=== PATIENT | male | born 1965 | race Caucasian/White ===

== ENCOUNTER 2020-07-29 16:07 | Emergency (ER) | payer MEDICAID ==
[~2020-07-29] VITALS: Ht 190.5 cm; Wt 90.0 kg
[2020-07-29 16:11] VITALS: BP 179/118
[2020-07-29] MEDS ORDERED: normal saline 1000ML IV soln IVB ONE (16:20)
[2020-07-29 16:43] LABS: BASOPHILS % (AUTO) 0.7 % (0-1); EOSINOPHILS # (AUTO) 0.1 X10'3 (0-0.9); EOSINOPHILS % (AUTO) 2.1 % (0-6); HEMATOCRIT 43.5 % (42.0-52.0); LYMPHOCYTES # (AUTO) 1.3 X10'3 (1.1-4.8); LYMPHOCYTES % (AUTO) 24.9 % (21-51); MEAN CORPUSCULAR HEMOGLOBIN 30.3 PG (27.0-31.0); MEAN CORPUSCULAR HGB CONC 34.5 g/dL (33.0-36.5); MEAN CORPUSCULAR VOLUME 87.8 FL (78-98); MEAN PLATELET VOLUME 8.7 FL (7.4-10.4); MONOCYTES # (AUTO) 0.6 X10'3 (0-0.9); MONOCYTES % (AUTO) 11.6 % (2-12); NEUTROPHILS # (AUTO) 3.3 X10'3 (1.8-7.7); NEUTROPHILS % (AUTO) 60.7 % (42-75); PLATELET COUNT 163 X10'3 (140-440); RED BLOOD COUNT 4.96 X10'6 (4.70-6.10); RED CELL DISTRIBUTION WIDTH 13.2 % (11.5-14.5); WHITE BLOOD COUNT 5.4 X10'3 (4.5-11.0)
[2020-07-29 16:57] LABS: ALANINE AMINOTRANSFERASE 39 U/L (12-78); ALBUMIN 3.8 G/DL (3.4-5.0); ALKALINE PHOSPHATASE 129 IU/L (46-116); ANION GAP 7 (8-16); ASPARTATE AMINO TRANSFERASE 23 U/L (10-37); BILIRUBIN,TOTAL 0.4 MG/DL (0.1-1.0); BLOOD UREA NITROGEN 27 MG/DL (7-18); BUN/CREATININE RATIO 18.6 (5.4-32.0); CALCIUM 9.1 MG/DL (8.5-10.1); CHLORIDE 102 MMOL/L (99-107); CREATININE 1.45 MG/DL (0.60-1.10); GLUCOSE 309 MG/DL (70-104); POTASSIUM 4.1 MMOL/L (3.5-5.1); SODIUM 137 MMOL/L (135-145); TOTAL CARBON DIOXIDE 27.6 MMOL/L (24-32); TOTAL PROTEIN 7.6 G/DL (6.4-8.2); eGFR 51 ML/MIN
== END 2020-07-29 17:23 | disposition home or self-care (01) ==
LOC: ER 16:07
DX: E11.65 Type 2 diabetes mellitus with hyperglycemia (principal); I10 Essential (primary) hypertension
CPT/HCPCS: 36415; 80053; 82948; 85025; 99283

== ENCOUNTER 2021-03-15 11:59 | Inpatient (IN) | payer MEDICAID ==
[~2021-03-15] VITALS: Ht 190.5 cm; Wt 90.9 kg
--- NOTE | 2021-03-15 11:30 | NUR ---
patient refuses Lantus.request to speak to MD in the morning before he takes it. Per ED nurse patient refused it in the ED. Addendum: 03/16/21 at 0544 by Pily Oliva RN documentation for 2330 not for 1130. wrong time.
[2021-03-15] MEDS ORDERED: aspirin 81mg tab.chew PO ONE (12:15)
[2021-03-15] MEDS ORDERED: iohexol 350MG/ML 100ml bottle IV ONE (12:22)
[2021-03-15 12:28] LABS: BASOPHILS % (AUTO) 0.3 % (0-1); EOSINOPHILS # (AUTO) 0.1 X10'3 (0-0.9); EOSINOPHILS % (AUTO) 1.8 % (0-6); HEMATOCRIT 42.1 % (42.0-52.0); HEMOGLOBIN 14.6 g/dl (14.0-17.9); LYMPHOCYTES # (AUTO) 1.1 X10'3 (1.1-4.8); LYMPHOCYTES % (AUTO) 21.2 % (21-51); MEAN CORPUSCULAR HEMOGLOBIN 30.7 PG (27.0-31.0); MEAN CORPUSCULAR HGB CONC 34.6 g/dL (33.0-36.5); MEAN CORPUSCULAR VOLUME 88.6 FL (78-98); MEAN PLATELET VOLUME 8.8 FL (7.4-10.4); MONOCYTES # (AUTO) 0.4 X10'3 (0-0.9); MONOCYTES % (AUTO) 8.3 % (2-12); NEUTROPHILS # (AUTO) 3.7 X10'3 (1.8-7.7); NEUTROPHILS % (AUTO) 68.4 % (42-75); PLATELET COUNT 154 X10'3 (140-440); RED BLOOD COUNT 4.75 X10'6 (4.70-6.10); RED CELL DISTRIBUTION WIDTH 13.3 % (11.5-14.5); WHITE BLOOD COUNT 5.4 X10'3 (4.5-11.0)
--- NOTE | 2021-03-15 12:31 | NUR ---
to ct scan.
[2021-03-15 12:38] LABS: ALANINE AMINOTRANSFERASE 32 U/L (12-78); ALBUMIN 3.6 G/DL (3.4-5.0); ALKALINE PHOSPHATASE 144 IU/L (46-116); ANION GAP 7 (8-16); ASPARTATE AMINO TRANSFERASE 17 U/L (10-37); BILIRUBIN,TOTAL 0.5 MG/DL (0.1-1.0); BLOOD UREA NITROGEN 21 MG/DL (7-18); BUN/CREATININE RATIO 14.6 (5.4-32.0); CHLORIDE 104 MMOL/L (99-107); CREATININE 1.44 MG/DL (0.60-1.10); GLUCOSE 326 MG/DL (70-104); POTASSIUM 4.2 MMOL/L (3.5-5.1); SODIUM 138 MMOL/L (135-145); TOTAL CARBON DIOXIDE 27.4 MMOL/L (24-32); TOTAL PROTEIN 7.2 G/DL (6.4-8.2); eGFR 51 ML/MIN
--- NOTE | 2021-03-15 12:40 | NUR ---
ATTEMPT EKG, PT TO CT AT THIS TIME.
[2021-03-15 12:44] LABS: CALCIUM 8.8 MG/DL (8.5-10.1)
--- NOTE | 2021-03-15 13:32 | NUR ---
STROKE NURSE AT BEDSIDE.
--- NOTE | 2021-03-15 13:37 | NUR ---
Ean called in for a stroke alert that is level 2 and did my evaluation,we are waiting on the tele neuro consult.
--- NOTE | 2021-03-15 14:44 | NUR ---
TELE NEURO CONSULT HAS BEEN DONE
--- NOTE | 2021-03-15 15:00 | NUR ---
PT CAME BACK FROM MRI.
[2021-03-15] MEDS ORDERED: NO HOME MEDS (15:34)
[2021-03-15] MEDS ORDERED: acetaminophen 325mg tablet PO PRN (15:40)
[2021-03-15] MEDS ORDERED: ondansetron/PF 4mg/2ml inj IV PRN (15:40)
[2021-03-15] MEDS ORDERED: magnesium hydroxide 30ml (MOM) UD suspension PO PRN (15:40)
[2021-03-15] MEDS ORDERED: potassium Cl 40MEQ/1/2NS 520ml 520 ML IV PRN ×2 (15:40)
[2021-03-15] MEDS ORDERED: potassium Cl 20 mEq SR tablet PO PRN ×2 (15:40)
[2021-03-15] MEDS ORDERED: mag hydrox/Alum hydrox/simeth 30ml oral suspension PO PRN (15:40)
[2021-03-15] MEDS ORDERED: PERFLUTREN PROTEIN-A MICROSPHR (Optison) 0.22 MG/ML 3ML VIAL IV ONE (15:40)
[2021-03-15] MEDS ORDERED: dextrose 50%-water 50ml dispensing syringe IV PRN ×2 (15:45)
[2021-03-15] MEDS ORDERED: MESSAGE TO PHARMACY PO ONE (15:45)
[2021-03-15] MEDS ORDERED: glucagon, human recombinant 1mg kit SUBCUT PRN (15:45)
[2021-03-15] MEDS ORDERED: dextrose ORAL solution 15 GM/59 ML bottle PO PRN ×2 (15:45)
[2021-03-15 16:17] LABS: HEMOGLOBIN A1C 10.7 % (4.5-6.2)
[2021-03-15] MEDS: docusate sod 100mg capsule PO SCH (20:00)
[2021-03-15] MEDS: heparin, porcine 5000 units/ml vial SQ SCH (21:55)
[2021-03-15] MEDS: K and/or MAG REPLACEMENT MC SCH (22:02)
--- NOTE | 2021-03-15 22:11 | NUR ---
Patient assessed for stroke symptoms. Patient displayed mild weakness on right side with squeezing this marketing underwriter's hand, other limbs are WNL per patient. When asked to smile patient displayed left side smiling but right side unable to smile. Pupil responses are WNL.
--- NOTE | 2021-03-15 22:54 | NUR ---
Patient in room ED 9 GOING TO [id number]. I have received report from SARA MOREL and had the opportunity to ask questions and assume patient care.
[2021-03-16] VITALS (10 sets, daily range): BP systolic 126–168; BP diastolic 83–126
--- NOTE | 2021-03-16 00:05 | NUR ---
PATIENT ADMITTED TO [facility]. VS ASSESSED AND DOCUMENTED.PATIENT TELE MONITOR ON. PATIENT'S BP RUNS HIGH. HOSPITALIST RAYMOND Gregory MD, PAGED TO REPORT PATIENT HYPERTENSIVE STATE. PER HOSPITALIST NO ACTION IS NEEDED. NO NEW ORDER WAS GIVEN. STATES "IF ANYTHING FOLLOW PROTOCOL". PATIENT IS CURRENTLY LAYING IN BED. DENIES PAIN OR DISTRESS. CALL LIGHT IN REACH. ENCOURAGE PATIENT TO CALL FOR HELP NEEDED. ALL SAFETY MEASURES INITIATED.WILL CONTINUE FREQUENT ROUNDING.
--- NOTE | 2021-03-16 01:25 | NUR ---
12hr troponin and am lab drawn. specimen taken to lab.
[2021-03-16 01:34] LABS: BASOPHILS % (AUTO) 0.2 % (0-1); EOSINOPHILS # (AUTO) 0.1 X10'3 (0-0.9); HEMATOCRIT 42.3 % (42.0-52.0); LYMPHOCYTES # (AUTO) 1.4 X10'3 (1.1-4.8); LYMPHOCYTES % (AUTO) 21.3 % (21-51); MEAN CORPUSCULAR HEMOGLOBIN 30.9 PG (27.0-31.0); MEAN CORPUSCULAR HGB CONC 35.4 g/dL (33.0-36.5); MEAN CORPUSCULAR VOLUME 87.3 FL (78-98); MEAN PLATELET VOLUME 8.8 FL (7.4-10.4); MONOCYTES # (AUTO) 0.5 X10'3 (0-0.9); MONOCYTES % (AUTO) 7.2 % (2-12); NEUTROPHILS # (AUTO) 4.6 X10'3 (1.8-7.7); NEUTROPHILS % (AUTO) 69.3 % (42-75); PLATELET COUNT 156 X10'3 (140-440); RED BLOOD COUNT 4.85 X10'6 (4.70-6.10); RED CELL DISTRIBUTION WIDTH 13.1 % (11.5-14.5); WHITE BLOOD COUNT 6.7 X10'3 (4.5-11.0)
[2021-03-16 01:51] LABS: ALANINE AMINOTRANSFERASE 34 U/L (12-78); ALBUMIN 3.5 G/DL (3.4-5.0); ALKALINE PHOSPHATASE 99 IU/L (46-116); ANION GAP 6 (8-16); ASPARTATE AMINO TRANSFERASE 21 U/L (10-37); BILIRUBIN,TOTAL 0.6 MG/DL (0.1-1.0); BLOOD UREA NITROGEN 16 MG/DL (7-18); BUN/CREATININE RATIO 13.3 (5.4-32.0); CALCIUM 8.9 MG/DL (8.5-10.1); CHLORIDE 106 MMOL/L (99-107); GLUCOSE 165 MG/DL (70-104); POTASSIUM 4.1 MMOL/L (3.5-5.1); SODIUM 140 MMOL/L (135-145); TOTAL CARBON DIOXIDE 27.9 MMOL/L (24-32); TOTAL PROTEIN 7.1 G/DL (6.4-8.2); eGFR 63 ML/MIN
[2021-03-16 01:55] LABS: CHOL/HDL RATIO 4.1 (0.00-4.99); CHOLESTEROL 173 MG/DL (0-200); HDL CHOLESTEROL 42 MG/DL (35-60); LDL CHOLESTEROL 106 MG/DL (50-100); TRIGLYCERIDES 109 MG/DL (20-135)
--- NOTE | 2021-03-16 06:33 | NUR ---
Patient in room PCU 3015. I have received report from SARA MCKEON, and had the opportunity to ask questions and assume patient care.
[2021-03-16] MEDS: K and/or MAG REPLACEMENT MC SCH ×2 (06:47→20:00)
[2021-03-16] MEDS: aspirin 81mg, enteric-coated 1 TAB TABLET.DR PO SCH (07:41)
[2021-03-16] MEDS: atorvastatin 10mg tablet PO SCH (07:42)
[2021-03-16] MEDS: amLODIPine 2.5mg tablet PO SCH (07:42)
[2021-03-16] MEDS: docusate sod 100mg capsule PO SCH ×2 (07:42→20:00)
[2021-03-16] MEDS: heparin, porcine 5000 units/ml vial SQ SCH ×2 (07:43→20:00)
[2021-03-16] MEDS: insulin Lispro (HumaLOG) vial - multi-dose SQ SCH ×3 (09:42→19:15)
--- NOTE | 2021-03-16 12:28 | NUR ---
PAGE SENT PAGER ID: [phone] MESSAGE: [id number], KOFI SERVINSON, BP - 309.107, HR 91. THANK YOU, FREDERICK, [id number]
--- NOTE | 2021-03-16 13:26 | NUR ---
Noted pt with T2DM poorly controlled with A1c 10.7%. Attempted visit with pt at bedside however pt sleeping and did not wake with verbal cues. Written DM education with RD contact information left at patient's bedside. Will attempt verbal education at another time. Noted that pt takes no medications for DM per H&P. Pt admit for CVA, s/p BSS with ST recs regular consistency of food and liquids as pt with no s/s aspiration. Will continue to follow. Addendum: 03/16/21 at [address] Amended: Links added.
--- NOTE | 2021-03-16 18:42 | NUR ---
Problems reprioritized. Patient report given, questions answered & plan of care reviewed with SARA MCKEON.
--- NOTE | 2021-03-16 20:45 | NUR ---
patient faustino was called back at [phone] to update about patient.
[2021-03-16] MEDS: insulin glargine (Lantus) pen - multi-dose SQ SCH ×2 (22:00→22:30)
[2021-03-17 02:00] VITALS: BP 161/93
[2021-03-17 06:00] VITALS: BP 153/113
--- NOTE | 2021-03-17 06:09 | NUR ---
Patient in room PCU 3015. I have received report from SARA MCKEON, and had the opportunity to ask questions and assume patient care.
--- NOTE | 2021-03-17 06:26 | NUR ---
Problems reprioritized. Patient report given, questions answered & plan of care reviewed with SARA Escalona.
[2021-03-17 06:45] LABS: BASOPHILS % (AUTO) 0.3 % (0-1); EOSINOPHILS # (AUTO) 0.1 X10'3 (0-0.9); EOSINOPHILS % (AUTO) 1.9 % (0-6); HEMATOCRIT 45.3 % (42.0-52.0); LYMPHOCYTES # (AUTO) 1.6 X10'3 (1.1-4.8); LYMPHOCYTES % (AUTO) 22.6 % (21-51); MEAN CORPUSCULAR HEMOGLOBIN 30.9 PG (27.0-31.0); MEAN CORPUSCULAR HGB CONC 35.2 g/dL (33.0-36.5); MEAN CORPUSCULAR VOLUME 87.6 FL (78-98); MEAN PLATELET VOLUME 8.9 FL (7.4-10.4); MONOCYTES # (AUTO) 0.6 X10'3 (0-0.9); NEUTROPHILS # (AUTO) 4.7 X10'3 (1.8-7.7); NEUTROPHILS % (AUTO) 67.2 % (42-75); PLATELET COUNT 173 X10'3 (140-440); RED BLOOD COUNT 5.17 X10'6 (4.70-6.10); RED CELL DISTRIBUTION WIDTH 12.9 % (11.5-14.5); WHITE BLOOD COUNT 6.9 X10'3 (4.5-11.0)
[2021-03-17 07:28] LABS: ALANINE AMINOTRANSFERASE 31 U/L (12-78); ALBUMIN 3.3 G/DL (3.4-5.0); ALBUMIN/GLOBULIN RATIO 0.9 (1.1-1.5); ALKALINE PHOSPHATASE 94 IU/L (46-116); ANION GAP 12 (8-16); ASPARTATE AMINO TRANSFERASE 18 U/L (10-37); BILIRUBIN,TOTAL 0.6 MG/DL (0.1-1.0); BLOOD UREA NITROGEN 18 MG/DL (7-18); BUN/CREATININE RATIO 15.8 (5.4-32.0); CALCIUM 8.7 MG/DL (8.5-10.1); CHLORIDE 106 MMOL/L (99-107); CREATININE 1.14 MG/DL (0.60-1.10); GLUCOSE 180 MG/DL (70-104); POTASSIUM 3.9 MMOL/L (3.5-5.1); SODIUM 141 MMOL/L (135-145); TOTAL CARBON DIOXIDE 22.7 MMOL/L (24-32); TOTAL PROTEIN 7.1 G/DL (6.4-8.2); eGFR 66 ML/MIN
[2021-03-17] MEDS: aspirin 81mg, enteric-coated 1 TAB TABLET.DR PO SCH (07:46)
[2021-03-17] MEDS: K and/or MAG REPLACEMENT MC SCH (07:46)
[2021-03-17] MEDS: heparin, porcine 5000 units/ml vial SQ SCH (07:47)
[2021-03-17] MEDS: amLODIPine 2.5mg tablet PO SCH (07:48)
[2021-03-17] MEDS: atorvastatin 10mg tablet PO SCH (07:48)
[2021-03-17] MEDS: docusate sod 100mg capsule PO SCH (07:48)
[2021-03-17] MEDS: insulin Lispro (HumaLOG) vial - multi-dose SQ SCH ×2 (09:10→13:36)
[2021-03-17] MEDS ORDERED: ATOR10TA PO ×3 (09:36→10:35)
[2021-03-17] MEDS ORDERED: ASPI-1071 PO (09:36)
[2021-03-17] MEDS ORDERED: AMLO2.5T5 PO (09:36)
[2021-03-17 11:00] VITALS: BP 148/95
[2021-03-17] MEDS ORDERED: METF-900 PO (11:51)
--- NOTE | 2021-03-17 13:58 | NUR ---
PT STABLE FOR DISCHARGE PER MD. DISCHARGE AND FOLLOW UP INSTRUCTIONS WERE REVIEWED, APPROPRIATE PAPERWORK SIGNED. PIV REMOVED WITH TIP INTACT.PT DISCHARGED TO HOME. PT TRANSFERRED TO PRIVATE VEHICLE BY HOSPITAL STAFF.
== END 2021-03-17 13:45 | disposition home or self-care (01) | DRG 45 ==
LOC: ER 12:00 → ED HOLD 15:41 → PCU 3S 23:59
PROVIDERS: ADMIT Internal Medicine; ATTEND Internal Medicine
PROC: B3251ZZ Computerized Tomography (CT Scan) of Bilateral Common Carotid Arteries using Low Osmolar Contrast (ICD-10-PCS; principal; 2021-03-15)
PROC: B32G1ZZ Computerized Tomography (CT Scan) of Bilateral Vertebral Arteries using Low Osmolar Contrast (ICD-10-PCS; 2021-03-15)
PROC: B32R1ZZ Computerized Tomography (CT Scan) of Intracranial Arteries using Low Osmolar Contrast (ICD-10-PCS; 2021-03-15)
PROC: B3281ZZ Computerized Tomography (CT Scan) of Bilateral Internal Carotid Arteries using Low Osmolar Contrast (ICD-10-PCS; 2021-03-15)
DX: I63.512 Cerebral infarction due to unspecified occlusion or stenosis of left middle cerebral artery (principal); G81.91 Hemiplegia, unspecified affecting right dominant side; E11.65 Type 2 diabetes mellitus with hyperglycemia; I10 Essential (primary) hypertension; F17.210 Nicotine dependence, cigarettes, uncomplicated; F15.10 Other stimulant abuse, uncomplicated; G51.0 Bell's palsy; Z20.822 Contact with and (suspected) exposure to COVID-19; Z91.19 Patient's noncompliance with other medical treatment and regimen; Z86.73 Personal history of transient ischemic attack (TIA), and cerebral infarction without residual deficits; Z91.14 Patient's other noncompliance with medication regimen
CPT/HCPCS: 36415; 70450; 70496; 70498; 70551; 71045; 80053; 80061; 82948; 83036; 83880; 84484; 85025; 85610; 86885; 86900; 86901; 87081; 87635; 92508; 92616; 93005; 93306; 97161; 97530; 99285; G0378; J1644; J1815; Q9967

== ENCOUNTER 2022-01-21 03:10 | Emergency (ER) | payer MEDICAID ==
[~2022-01-21] VITALS: Ht 193 cm; Wt 90.9 kg
[~2022-01-21 03:10] MED LIST: AMLO2.5T5 PO; ASPI-1071 PO; ATOR10TA PO
[2022-01-21 04:19] VITALS: BP 167/121
== END 2022-01-21 07:57 | disposition left against medical advice (07) ==
LOC: ER 03:10
DX: I10 Essential (primary) hypertension (principal); Z53.21 Procedure and treatment not carried out due to patient leaving prior to being seen by health care provider
CPT/HCPCS: 93005

== ENCOUNTER 2025-01-31 23:09 | Inpatient (IN) | payer MEDICAID ==
[~2025-01-31] VITALS: Ht 188 cm; Wt 90.0 kg
--- NOTE | 2025-01-31 23:21 | ELECTROCARDIOGRAPH REPORT ---
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 Tyler Chau Measurements Intervals [place] Rate: 97 P: 55 MN: 169 QRS: -71 QRSD: 152 T: 75 QT: 403 QTc: 512 Interpretive Statements Sinus rhythm Probable left atrial enlargement Right bundle branch block Anterolateral infarct, age indeterminate Electronically Signed On 02-04-2025 19:19:[address] Tyler Chau Please click the below link to view image of tracing.
--- NOTE | 2025-01-31 23:54 | RADIOLOGY REPORT ---
CHEST RADIOGRAPH Indication: Shortness of breath Technique: 1 view Comparison: CHEST,SINGLE VIEW on DOS: 03/15/21 FINDINGS: Lines and Tubes: None Lungs/Pleura: Diffuse perihilar interstitial opacities. Suspected trace pleural effusions. No pneumothorax. Cardiomediastinum: Heart size within normal limits for technique. Other: No acute osseous abnormality. IMPRESSION: 1. Diffuse interstitial opacities suggesting edema or atypical infection.
[2025-02-01 00:18] LABS: CREATININE 1.78 MG/DL (0.60-1.10); TOTAL CARBON DIOXIDE 21.8 MMOL/L (24-32); eCRCL 51 ML/MIN; eGFR 39 ML/MIN
[2025-02-01 00:25] LABS: PRO BRAIN NATRIURETIC PEPTIDE 13014 PG/ML (0-125)
[2025-02-01] MEDS: ondansetron/PF 4mg/2ml inj IV ONE (01:23)
[2025-02-01 02:22] LABS: MEAN PLATELET VOLUME 8.6 FL (7.4-10.4); RED CELL DISTRIBUTION WIDTH 15.8 % (11.5-14.5)
[2025-02-01] MEDS: furosemide 10 MG/1 ML 10ml inj IV ONE (03:06)
--- NOTE | 2025-02-01 03:16 | Physician Documentation ---
History of Present Illness ~ Chief Complaint: Shortness of Breath Stated Complaint: SOB Time Seen by MD: 23:18 Primary Medical Doctor: [facility] Mode of Arrival: POV HPI This is a very pleasant 59-year-old gentleman with a known history of myocardial infarction with a about a year ago, history of methamphetamine use, ongoing, this is a bite of has been myocardial infarction, who currently is homeless and resides in the homeless camp in [facility], comes in for evaluation of three days of progressive worsening shortness a breath that is markedly worse when he tries to lie down flat. No obvious trigger provocation. Palliated by sitting upright. Not accompanied by chest pain. Has not experienced this in the past. Denies any fever or chills. Denies any nausea, vomiting, diarrhea, abdominal pain. He does use methamphetamines regularly although he has been quit for about three months after his heart attack. He vapes. Medication Reconciliation Allergies: Coded Allergies: No Known Allergies (Unverified , 03/15/21) Scheduled Amlodipine Besylate (Amlodipine Besylate), 2.5 MG PO DAILY Aspirin (Ecotrin*), 1 TAB PO DAILY Atorvastatin Calcium (Lipitor), 40 MG PO DAILY Past Medical History Past Medical History: CVA/TIA/Stroke, Hypertension, Diabetes Past Surgical History: noncontributory Alcohol Use: Occasionally Drug Use: methamphetamine Lives In: Home Review of Systems ROS 10 point review of systems was performed and unless noted above in HPI is negative for acute process/complaint. Physical Exam Vital Signs: Temperature: 98.0, Heart Rate: 95, Respiratory Rate: 21, BP: 130/100, Pulse Oximetry: 96, Weight: 90.900 Oxygen Flow Rate: 0 Physical Exam GENERAL: Awake, alert, oriented, GCS 15, no apparent distress, non-toxic appearing, answers questions, follows commands appropriately. HEENT: Atraumatic, normocephalic, pupils equal, extraocular muscles intact, sclerae anicteric, mucus membranes moist, oropharynx is clear, no stridor. NECK: supple, full active range of motion, trachea midline, no thyromegaly, no lymphadenopathy, no JVD. CARDIOVASCULAR: regular rate/rhythm, no murmurs/gallops/rubs, Pulses are 2+ in all extremities and symmetric. Capillary refill less than 2 seconds. PULMONARY: Nonlabored, good air movement ,no respiratory distress, speaking in full sentences, coarse breath sounds bilaterally, no wheezing, no ronchi, bilateral rales, no accessory muscle use. GASTROINTESTINAL: Soft, non-tender, non-distended, normal active bowel sounds, no organomegaly, no pulsatile masses, no CVA tenderness. NEUROLOGIC: Lucid with normal mental status. Normal facial symmetry. Moves all extremities symmetrically and with purpose. No truncal ataxia. Speech is fluid without evidence of dysarthria or aphasia, no focal deficits appreciated. MUSCULOSKELETAL: There is full range of motion of all extremities. There is no joint pain or joint swelling or joint erythema. There is no muscle pain or tenderness or swelling. EXTREMITIES: warm, well-perfused, no cyanosis, no clubbing, bilateral lower extremity edema, no acute deformities. Skin: warm, dry, no rashes or lesions, no jaundice, no petechiae orpurpura. No ecchymosis. PSYCHIATRIC: Normal affect, normal insight, normal concentration. Focused exam: [] Progress Results/Orders Results/Orders Orders - ABHI SANTOS DO Chest,Single View (01/31/25 23:18) Hs Troponin I W Calculations (02/01/25 02:18) Covid19 Binax Poc Result Entry (01/31/25 23:18) Completed Orders - ABHI SANTOS DO Electrocardiogram (01/31/25 23:18) D-Dimer (01/31/25 23:18) Chest,Single View (01/31/25 23:18) PBNP (01/31/25 23:18) MG (01/31/25 23:18) CMP (01/31/25 23:18) Hs Troponin I W Calculations (01/31/25 23:18) Hs Troponin I W Calculations (02/01/25 01:18) Cbc/Diff (02/01/25 00:11) Ondansetron Inj. (Zofran 4mg/2ml Vial) (02/01/25 01:20) Furosemide Inj (Lasix Inj) (02/01/25 02:45) Medications Received in ER Medications (Trade) Dose Ordered Sig/Deena Route PRN Reason Start Time Stop Time Status Last Admin Dose Admin (Zofran 4mg/2ml vial) 4 mg ONCE ONCE IV 02/01/25 01:20 02/01/25 01:21 DC 02/01/25 01:23 4 MG (Lasix inj) 40 mg ONCE ONCE IV 02/01/25 02:45 02/01/25 03:01 DC 02/01/25 03:06 40 MG Vital Signs 01/31/25 01/31/25 02/01/25 02/01/25 23:23 23:27 00:30 00:43 Temp 98.0 Pulse 86 92 Resp 26 23 28 B/P (MAP) 146/110 (122) 155/122 (133) Pulse Ox 93 95 O2 Flow Rate 0 0 02/01/25 02/01/25 01:30 02:30 Pulse 89 95 Resp 25 21 B/P (MAP) 138/104 (115) 130/100 (110) Pulse Ox 95 96 O2 Flow Rate 0 0 Laboratory Tests Test 01/31/25 23:56 02/01/25 00:49 02/01/25 02:04 CBC Comment D-Dimer 2.87 H D-Dimer Comment Sodium Level 138 Potassium Level 4.2 Chloride Level 107 Carbon Dioxide Level 21.8 L Anion Gap 9 Blood Urea Nitrogen 31 H Creatinine 1.78 H Estimated GFR/1.73 m2 39 BUN/Creatinine Ratio 17.4 Glucose Level 141 H Calcium Level 9.0 Magnesium Level 2.0 Total Bilirubin 1.1 H Aspartate Amino Transf (AST/SGOT) 26 Alanine Aminotransferase (ALT/SGPT) 22 Alkaline Phosphatase 107 Troponin I High Sensitivity 76 *H 74 Pro-B-Type Natriuretic Peptide 28446 H Total Protein 7.0 Albumin 3.6 Globulin 3.4 Albumin/Globulin Ratio 1.1 Chemistry Comments SARS-CoV-2 Antigen (Rapid) Negative White Blood Count 7.4 Red Blood Count 4.22 L Hemoglobin 12.3 L Hematocrit 36.6 L Mean Corpuscular Volume 86.6 Mean Corpuscular Hemoglobin 29.0 Mean Corpuscular Hemoglobin Concent 33.5 Red Cell Distribution Width 15.8 H Platelet Count 152 Mean Platelet Volume 8.6 Neutrophils (%) (Auto) 79.3 H Lymphocytes (%) (Auto) 12.5 L Monocytes (%) (Auto) 6.7 Eosinophils (%) (Auto) 1.1 Basophils (%) (Auto) 0.4 Neutrophils # (Auto) 5.9 Lymphocytes # (Auto) 0.9 L Monocytes # (Auto) 0.5 Eosinophils # (Auto) 0.1 Basophils # (Auto) 0.0 Troponin I High Sens Percent Delta 2 Troponin I Hi Sens Absolute Change -2 Medical Decision Making Findings Facility Status: ED Holds, E process The plan was discussed with the patient, who demonstrates clear understanding of the plan and is in agreement with the plan unless otherwise noted in the chart. All questions have been answered, all concerns were addressed unless otherwise documented. I was available throughout their ED stay for frequent reassessment and questions. Differential Diagnoses (considered and possible or likely): [COVID, influenza, RSV, upper respiratory infection with the top of the viruses, ACS, CHF, COPD] ??Differential Diagnoses (considered and unlikely, not requiring evaluation currently): [Less likely PE] occult MDM Data Please see [facility] for the following: Independent Historians and external Records Review. Historian: [Patient] Independent Historians: ?[Record review] Medication Management: [Reviewed medication list] Social History and determinants: [Reviewed] Please see the body of the note for the following: Any independent interpretations of ECG, imaging studies. All vitals signs/haemodynamics, ordered tests were independently reviewed and interpreted by myself. Nursing triage complaint and vitals reviewed, additional nursing notes were reviewed as available and I agree unless otherwise noted or documented in contr adiction in the chart Vital Signs: Independently reviewed Labs: Independently interpreted Imaging: Independently interpreted Old Medical Records: Independently reviewed, see [facility] for relevant summary and information Pulse Oximetry: [94%] interpreted as [normal on room air] by me [International Account Executive: [Regular Rate, Regular rhythm, no ectopy, NSR] reviewed and interpreted by me] Additionally notably showing: [Hemodynamics reviewed. The patient is not febrile, tachycardic, no evidence of hypotension respiratory distress. Metabolic panel is essentially unremarkable. BNP is minimally elevated, troponin is negative. CBC is completely normal. Chest x-ray was obtained showing no acute cardiopulmonary disease.] Tests considered but not ordered include: [Initially did not consider CTA, however we will obtain given elevated D-dimer.] Social Determinants of Health Impact: Patient was evaluated in [facility], [facility] [place] to healthcare due to below par ratio of patient to medical providers. [] Comorbid Conditions Impacting Present Evaluation and Care/Treatment: [History of coronary artery disease] Management Discussions with other Healthcare Providers: [Hospitalist regarding admission] Treatment and Disposition Medication Management (Given or considered): []. See EMR for details Consideration for Hospitalization/Escalation/Deescalation of Care: Admission for observation has been considered, and appears to be necessary for further management of his CHF. ?ED Course:?[CT angiography was pending at the time of admission. Patient will require admission to Internal Medicine service for further evaluation and management of their disease process. The case was discussed with [resident] of the admitting service and they were made aware of all the patient's active issues, including the above-mentioned history, physical exam findings, and the diagnostic results, as well as our concerns and suspicions, as well as any possible incidental findings and pending test. They agreed with the admission plan to their service, and agreed to assume responsibility for the patient's ongoing care and management at that point in time. Patient was admitted in [stable] condition. ] ?Shared decision making:?[] Code status:?FULL Please see the full Electronic Medical Record for full details of nursing documentation, medications list, other records of complete past medical history and conditions, vital signs, laboratory studies, and any radiologic study interpretations by radiologists. Portions of this note were completed using Intela dictation software and as a result there may exist minor errors in spelling. I have reviewed elements of past family and social history and agree as included in note. Departure Impression: Primary Impression: New onset of congestive heart failure Additional Impressions: Orthopnea Shortness of breath Elevated d-dimer Methamphetamine use Homelessness Condition: Stable Referrals: NO PRIMARY CARE PROVIDER (PCP) Signature Scribe Signature: No scribe Attestation: Date: Feb 01, 2025 Time: 03:22 This note accurately reflects clinical decisions, work performed by myself, Abhi Santos, ABHI SWANSON DO Feb 01, 2025 03:16
[2025-02-01] MEDS ORDERED: PERFLUTREN PROTEIN-A MICROSPHR (Optison) 0.22 MG/ML 3ML VIAL IV PRN (04:10)
[2025-02-01] MEDS ORDERED: potassium Cl 20 mEq SR tablet PO PRN ×2 (04:10)
[2025-02-01] MEDS ORDERED: ondansetron/PF 4mg/2ml inj IV PRN (04:10)
[2025-02-01] MEDS ORDERED: magnesium hydroxide 30ml (MOM) UD suspension PO PRN (04:10)
[2025-02-01] MEDS ORDERED: magnesium sulf-water 4G/100mL 100 ML IV PRN (04:10)
[2025-02-01] MEDS ORDERED: magnesium sulf-water 2g/50mL 50 ML IV PRN (04:10)
[2025-02-01] MEDS ORDERED: mag hydrox/Alum hydrox/simeth 30ml oral suspension PO PRN (04:10)
[2025-02-01] MEDS ORDERED: magnesium Cl slow-release 64mg tablet PO PRN (04:10)
[2025-02-01] MEDS ORDERED: potassium Cl 40MEQ/1/2NS 520ml 520 ML IV PRN (04:10)
--- NOTE | 2025-02-01 04:35 | HISTORY AND PHYSICAL-Residence ---
History & Physical Providers to CC Resident Creating Document: ENA HURTADO, RES ~ History of Present Illness Primary Medical Doctor: [facility] Reason for Admit\Complaint: New onset CHF History of Present Illness The patient is a 59-year-old male with past medical history of CAD s/p stenting last year, CVA, DM, HTN, substance use disorder, presented to the ED with complaints of worsening shortness of breath since the last three days. Patient was apparently asymptomatic three days back when he developed shortness of breath which is present even during rest. Orthopnea and PND present. Not associated with a cough, chest pain, palpitations or syncope. Reported bilateral leg swelling. 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 He is currently homeless and continues to consume methamphetamines. Does not have a PCP. Does not use any medications. Denies fever, cough, sore throat, congestion, chest pain, palpitations, syncope, nausea, vomiting, diarrhea, constipation, abdominal pain, burning micturition, loss of weight, hematuria, hematemesis, melena, hematochezia. Last bowel movement yesterday. Allergies: Coded Allergies: No Known Allergies (Unverified , 03/15/21) Home Medications Home Medications Active Lipitor (Atorvastatin Calcium) 10 Mg Tablet 40 Mg PO DAILY 30 Days Ecotrin* (Aspirin) 81 Mg Tablet.dr 1 Tab PO DAILY 30 Days Amlodipine Besylate 2.5 Mg Tablet 2.5 Mg PO DAILY 30 Days Past Medical History Past Medical History CAD s/p stenting one year ago History of CVA in 2020 DM not on medications HTN not on medications Sleep apnea, has used CPAP before, not compliant currently Past Surgical History Surgical History Comment Appendectomy Tonsillectomy Family history: Diabetes in his grandfather Past Social History Social History Comment Patient is currently homeless. Lives in [facility]. He has a cat and he left it with a friend for now. Wants to get discharged as soon as possible but does not want to leave AMA. Patient does not have a PCP, no director of restaurant operations and does not follow up with any other specialists. Uses cane for ambulation. Substance use history: Chronic smoker, has been trying to quit since his VT last year. Last cigarette two weeks ago, was smoking 5-6 cigarettes per day. Has been smoking since his teenage years. Rarely drinks alcohol. 1 to 3 times per year. Admits to consuming meth. Cut down on frequency. Last meth intake three weeks ago. Occasionally smokes marijuana. Alcohol Use: Occasionally Drug Use: Methamphetamine Lives In: Home ROS ROS Constitutional: No fever, dizziness, weakness. no change in appetite/weight HEENT: No blurring of the vision, No sore throat, epistaxis, tinnitus Cardiovascular: No chest pain/discomfort, palpitations, syncope. Reports pedal edema Respiratory: Reports sob, no cough, hemoptysis Gastrointestinal: No abdominal pain, nausea, vomiting. No diarrhea, constipation, melena. Genitourinary: No frquency, urgency, incontinence, nocturia. No dysuria, hematuria Musculoskeletal: No arthralgia, myalgia Endocrine: No fatigue, polydipsia, polyuria. No heat or cold intolerance Neurologic: No headache, vertigo. No weakness, numbness or tingling of extremities Psychiatric: No hallucinations/delusions, no anhedonia, no suicidal ideation Hematologic: No bleeding or bruises Exam Vitals: Vital Signs Date Time Temp Pulse Resp B/P (MAP) Pulse Ox O2 Delivery O2 Flow Rate FiO2 02/01/25 02:30 95 21 130/100 (110) 96 0 01/31/25 23:23 98.0 General: Adult male, alert and oriented x4, not in acute distress Head: Normocephalic with an atraumatic Eyes: Pupils- 3mm, reacting to light, conjunctiva- anicteric Nose and throat: No polyps, septum- normal, no mucosal ulcers Neck: Supple, no lymphadenopathy, no carotid bruit Respiratory: No use of accessory muscles of respiration, bibasilar crackles heard, no wheeze Cardiac: S1-S2 heard, rhythm regular, no gallop/murmur Abdomen: non distended, no tenderness, no organomegaly, bowel sounds - heard Extremities: no clubbing, trace bilateral pedal edema, no deformities, peripheral pulses - 2+, scratch asencio on bilateral legs Skin: warm and dry, no rash, no purpura Neuro: No focal deficit, gross cranial nerve exam - normal Diagnostic Data Last Recorded Lab Results: 02/01/25 0204 01/31/25 8976 Diagnostic Data: Laboratory Tests Test 01/31/25 23:56 D-Dimer 2.87 MG/L FEU (0-0.50) H D-Dimer Comment Counseling Services Smoking & Tobacco Cessation: > 10 Minutes Advance Care Planning Advanced Care plannin - 30 Minutes (Full code) Additional Plan A 59-year-old male with past medical history of substance use disorder, CAD s/p stenting, CVA, HTN, DM, sleep apnea, presented to the ED with worsening shortness of breaths in the last three days. He is being admitted into the hospital for further evaluation and management. 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 EKG shows bifascicular block with right bundle branch block and left axis deviation. Echocardiogram in 2020 showed ejection fraction of 60-65% with no structural abnormalities. ProBNP is elevated 24869. PE ruled out with CTA chest. Follow up with repeat echocardiogram. Patient received one dose of furosemide 40 mg in the ED. Ordered IV furosemide 40 mg twice daily. Evaluate for thoracentesis. Daily weights. Water restriction 1.5 L per day. Strict intake and output. Consider Cardiology consultation for new onset CHF. MINNA likely secondary to renal tubular stasis Creatinine 1.78, BUN 31, EGFR 39. Patient also received contrast for CTA chest. Carefully monitor kidney function. Continue Lasix 40 mg b.i.d. Follow up with urine lytes. Diabetes mellitus Medication noncompliance HB A1c 10.7 in 2020. Follow up with a repeat HB A1c. We will initiate the patient on hyperglycemia/hypoglycemia protocol if needed. Hypertension Medication noncompliance Patient not on any home antihypertensives. We will initiate if needed. Blood pressure is currently stable. CAD s/p stenting Not on home meds. Start aspirin 81 mg daily. History of CVA in 2020 Start aspirin 81 mg daily. Sleep apnea Noncompliant with CPAP. Outpatient follow up. Substance use disorder Patient consumes methamphetamines and nicotine. Substance use navigator and dialysis social worker consulted. Code Status: Full code DVT Prophylaxis: Heparin Analgesia/Sedation: Acetaminophen Lines/Tubes: PIV Nutrition: Heart healthy diet PT: Ordered Prognosis: Guarded Disposition: We will admit the patient into medical ivey. Repeat echocardiogram. Continue Lasix. Consider Cardiology consultation. Ena Hurtado MD Internal Medicine Resident PGY-2 Plan reviewed with bedside team. Patient seen through remote audiovisual assessment through HIPAA compliant setup. All labs, flowsheets, and images reviewed Cumulative nonprocedural care time spent in directed patient care = 30 min Date of Service: Feb 01, 2025 Billing Provider: EDILMA BARRAGAN MD, SOWMYA MANJARI, RES Feb 01, 2025 04:35 EDILMA BARRAGAN MD Feb 01, 2025 06:02
--- NOTE | 2025-02-01 05:02 | RADIOLOGY REPORT ---
CTA Chest with intravenous contrast INDICATION: Shortness a breath, elevated D-dimer COMPARISON: None TECHNIQUE: Multidetector spiral CTA of the chest was performed of the chest with intravenous contrast. PULMONARY ANGIOGRAPHY PROTOCOL was utilized using a bolus- tracking technique centered on the main pulmonary artery. Axial, coronal and sagittal multiplanar and MIP reformats were performed. Radiation Dose : 1. Chest: CTDI volume is 23.75 mGy. Dose-length product is 1163.31 mGy*cm The dose indicators for CT are the volume Computed Tomography (CT) Dose Index (CTDIvol) and the Dose Length Product (DLP), and are measured in units of mGy and mGy-cm, respectively. These indicators are not patient dose, but values generated from the CT scanner acquisition factors. The report includes radiation exposure data for exposures received during this examination. Findings: Pulmonary artery: No pulmonary embolism. Atherosclerotic vascular calcifications. Lower neck: Normal thyroid. Lungs: Large bilateral pleural effusions with adjacent atelectasis. No evidence of pneumothorax. Heart/Vascular Structures: Normal heart size. No pericardial effusion. Lymph Nodes: No adenopathy Musculoskeletal: No acute osseous abnormality. Soft tissues: Normal. Upper abdomen: Hepatomegaly and cholelithiasis. IMPRESSION: 1. No pulmonary embolism. 2. Large bilateral pleural effusions with adjacent atelectasis.
[2025-02-01] MEDS ORDERED: NO HOME MEDS (05:56)
[2025-02-01] MEDS: K and/or MAG REPLACEMENT MC SCH (08:00)
[2025-02-01 08:11] LABS: INR 1.2 INR
[2025-02-01 08:17] LABS: LEUKOCYTE ESTERASE ,URINE NEGATIVE (Neg); NITRITES, URINE NEGATIVE (Neg); OCCULT BLOOD,URINE NEGATIVE (Neg)
[2025-02-01 08:18] LABS: UA COLLECTION TYPE CLN CATCH MIDSTREAM
[2025-02-01] MEDS: aspirin 81mg, enteric-coated 1 TAB TABLET.DR PO SCH (09:58)
[2025-02-01] MEDS: docusate sod 100mg capsule PO SCH (09:58)
[2025-02-01] MEDS: heparin, porcine 5000 units/ml vial SQ SCH (09:59)
[2025-02-01 11:07] LABS: OSMOLALITY UA 302.0 MOSM/K (50-1400)
[2025-02-01 11:12] LABS: CREATININE,URINE RANDOM 5.0 MG/DL; URINE AMPHETAMINE SCREEN NEGATIVE (Neg); URINE BARBITUATE SCREEN NEGATIVE (Neg); URINE BENZODIAZEPINES SCREEN NEGATIVE (Neg); URINE CANNABINOID SCREEN NEGATIVE (Neg); URINE COCAINE SCREEN NEGATIVE (Neg); URINE METHADONE SCREEN NEGATIVE (Neg); URINE OPIATE SCREEN NEGATIVE (Neg); URINE PHENCYCLIDINE SCREEN NEGATIVE (Neg)
[2025-02-01 12:30] VITALS: RESP 18; O2SAT 92
[2025-02-01 13:15] VITALS: BP 127/91; PULSE 86; RESP 18; TEMP 98
[2025-02-01 15:00] VITALS: BP 117/81; PULSE 85; RESP 12; TEMP 98.6; O2SAT 92
--- NOTE | 2025-02-01 17:24 | CARDIOLOGY REPORT ---
APPROVED REPORT EXAM: Comprehensive 2D, Doppler, and color-flow Echocardiogram. Patient Location: [facility] B Heart Rate: 80's bpm Rhythm: SINUS Indications CONGESTIVE HEART FAILURE Renovator Machine Operator: NONE Previous echo: 03/16/21 PSYCHIATRIC EF 60-65%, m-mLVH, Reyna, trTR, trMR 2D Dimensions RVDd 5.8 cm IVSd 1.2 (0.7-1.1cm) LVDd 6.0 cm PWd 1.3 (0.7-1.1cm) IVSs 1.6 (0.8-1.2cm) LVDs 5.0 (2.5-4.0cm) PWs 1.7 (0.8-1.2cm) LVOT Diameter 2.54 (1.8-2.4cm) LVEF(%) 33.7 (>50%) FS (%) 16.4 % SV 61.2 ml CO 5.3 L/min M-Mode Dimensions Left Atrium(MM) 4.07 (2.5-4.0cm) Aortic Root 4.07 (2.2-3.7cm) Aortic Cusp Exc 2.06 (1.5-2.0cm) MV EPSS 1.8 (<0.5cm) Aortic Valve AoV Peak Mac. 108.8 cm/s AoV VTI 18.6 cm AO Peak GR. 4.7 mmHg AO Mean GR. 3 mmHg LVOT VTI 13.32 cm LVOT Peak Mac. 86.3 cm/s MELISSA(VTI)/BSA 3.65 cm2/m2 MELISSA (VTI) 3.65 cm2 Mitral Valve MV E Velocity 67.7 cm/s MV Peak Gr. 3 mmHg MV DECEL TIME 136 ms MV A Velocity 23.8 cm/s MV PHT 56 ms E/A Ratio 2.8 MVA (PHT) 3.93 cm2 MV VMax 83.1 cm/s Pulmonary Valve PAEDP 14.47 mmHg Tricuspid Valve TR P. Velocity 357 cm/s RAP ESTIMATE 10 mmHg TR Peak Gr. 51 mmHg RVSP 61 mmHg LEFT VENTRICLE Normal LV size and wall thickness. Overall systolic function is severely reduced. There is severe LV systolic dysfunction present. Overall estimated LVEF is about 20-25%. RIGHT VENTRICLE RV is severely dilated with normal function. PA systolic pressure of 61 mm of mercury. ATRIA The left atrium size is normal. AORTIC VALVE Trileaflet AV appears normal without stenosis. Mild insufficiency. MITRAL VALVE Mild MV annular calcification without stenosis. Mild tomorrow regurgitation. TRICUSPID VALVE TV appears structurally normal with moderate regurgitation. PULMONIC VALVE Normal PV without stenosis, physiologic insufficiency. GREAT VESSELS Aortic root is mildly dilated, at 4.07 cm. PERICARDIUM Normal pericardium. No effusion. Left Pleural effusion is present. Other Information Study Quality: Adequate Conclusion There is severe LV systolic dysfunction present. Overall estimated LVEF is about 20-25%. Normal LV size and wall thickness. Overall systolic function is severely reduced. RV is severely dilated with normal function. PA systolic pressure of 61 mm of mercury. Trileaflet AV appears normal without stenosis. Mild insufficiency. Mild MV annular calcification without stenosis. Mild tomorrow regurgitation. TV appears structurally normal with moderate regurgitation. Normal PV without stenosis, physiologic insufficiency. Normal pericardium. No effusion. Left Pleural effusion is present.
[2025-02-01] MEDS: metoprolol succinate 25mg (24-HOUR) SR. Tablet PO SCH (17:34)
[2025-02-01] MEDS: EMPAGLIFLOZIN 10 MG TABLET PO SCH (17:34)
[2025-02-01 18:00] VITALS: BP 138/98; PULSE 85; RESP 20; TEMP 97.4; O2SAT 94
--- NOTE | 2025-02-01 18:38 | PROGRESS NOTE- Residence ---
Progress Note - Resident Providers to CC Resident Creating Document: FAZAL MASON RES ~ Antibiotic Timeout Antibiotic Ordered?: No Subjective Patient stated that his shortness of breath was much more better than yesterday. He commented that he was cleared from methamphetamine usage last three weeks ago. He does not have any PCP and captain's assistant to follow up. Objective Vital Signs Date Time Temp Pulse Resp B/P (MAP) Pulse Ox O2 Delivery O2 Flow Rate FiO2 02/01/25 17:34 85 02/01/25 15:00 98.6 12 117/81 (93) 92 Nasal Cannula 2.0 Result Diagram: 02/01/25 0204 01/31/25 8817 Vitals were stable at the moment with temp 98.6 F, NM 86/minute, RR 20/minute, BP 135/99 mm Hg, pulse oximetry 95% on 3 L/min oxygen supplement. On exam, General: Well alert, well oriented, not confused, not agitated, not in acute distress, well cooperated during the physical. HEENT: Conjunctive are pink, sclerae clear, no icterus, pupil is equal in both sides, reactive to light, no ear discharge, no pharyngeal erythema or an edema, mouth and lips are moist. Neck: Supple, no JVD, no lymphadenopathy and thyromegaly. Lungs:Equal air entry on both lungs, no additional sounds Heart: S1-S2 regular sinus rhythm and, regular rate, no gallops, no rubs, no murmurs Abdomen: No visible peristalsis, Bowel sounds present on auscultation, soft, nontender, no guarding, no rigidity Extremities: No obvious deformities, 1+ pitting edema bilaterally, capillary refill intact, able to wiggle toes both sides, peripheral pulsations are intact on both sides, scratch asencio on bilateral legs. LIBRARY PARAPROFESSIONAL: No focal neurological deficits, no motor and sensory weakness in all 4 extremities, could move all 4 extremities Musculoskeletal: No joint swelling, deformities, inflammations, and no scoliosis and back tenderness Skin: No active skin lesions and rashes Coagulation Studies Laboratory Tests Test 01/31/25 23:56 02/01/25 07:41 D-Dimer 2.87 MG/L FEU (0-0.50) H D-Dimer Comment Prothrombin Time 11.9 SECONDS (9.0-12.0) INR International Normalized Ratio 1.2 INR Coagulation Comments Assessment Assessment A 59 years old male with a past medical history of substance use disorder- methamphetamine, CAD s/p one cardiac stent a year ago, CVA, hypertension, T2 DM, ELDA with BMI 27, presented to ER with acute progressive worsening of shortness of breaths over three days who was admitted to the hospital for further evaluation and management plan. Plan Plan # acute hypoxic respiratory failure from below # Newly diagnosesd acute decompensated/exacerbated CHFrEF 20-25% possibly from below # Methamphetamine induced cardiomyopathy # trace left pleural effusion # Slightly elevated Trop on admission- possibly from T2DM due to acute hypoxic respiratory distress Large bilateral pleural effusions X-ray chest shows pulmonary edema with trace bilateral pleural effusions. EKG shows bifascicular block with right bundle branch block and left axis deviation. Echocardiogram in 2020 showed ejection fraction of 60-65% with no structural abnormalities. ProBNP is elevated [id number]. PE ruled out with CTA chest. Follow up with repeat echocardiogram. Patient received one dose of furosemide 40 mg in the ED. Ordered IV furosemide 40 mg twice daily. Evaluate for thoracentesis. Daily weights. Water restriction 1.5 L per day. Strict intake and output. Consider Cardiology consultation for new onset CHF. 02/01/2025: 2D echocardiogram on 02/01/2025 showed LVEF 20-25% with severe systolic dysfunction, severely dilated RV, PASP 61 mm Hg, mild MR, moderate TR, normal pericardium and no effusion, left pleural effusion present. -his EF dropped down from 65% in 2019 1-20 to 25% -Ordered Life Vest -started GDM T-metoprolol, Entresto, Jardiance and MRA -continue Lasix 40 b.i.d., daily weights measurement, and strict I's and O's, water restriction 1.5 L. -trending down stable troponin [id number] -cardiology on-call Dr. Gauthier was requested for the consultation, appreciate it, and recommended for GDMT, meth usage cessation encouragement and Outpatient monitoring. -appreciate for health social work professor/substance navigation consultation for history of nicotine and amphetamine use. # normochromic normocytic anemia -mostly from the early stage of SELAM from low intake Vs acute Blood loss -which could contribute the heart failure exacerbation e.g. high output HF -studied Iron to replace if necessary -Ordered FOBT in the presence of BUN elevation for possible GI blood loss -encourage iron and protein enriched diet # MINNA likely secondary to renal tubular necrosis from previous Meth used Vs Contrast induced Creatinine 1.78, BUN 31, EGFR 39. Patient also received contrast for CTA chest. Carefully monitor kidney function. Continue Lasix 40 mg b.i.d. Follow up with urine lytes. 02/01/2025: FENa calculation showed 27.1% which is intrinsics renal cause of MINNA most probably from the previous meth used versus CTA contrast induced damage to the kidney -daily monitoring renal function -IV fluid replacement is not feasible in the setting of elevated proBNP and acute decompensated CHF # Type 2 Diabetes mellitus Medication noncompliance HB A1c 10.7 in 2020. Follow up with a repeat HB A1c. We will initiate the patient on hyperglycemia/hypoglycemia protocol if needed. 02/01/2025: HGB A1c 6.1, hemoglobin 12.3 -started on Jardiance -continue daily RBS monitoring, we will consider hypo/hyperglycemic protocol if necessary # Hypertension Medication noncompliance Patient not on any home antihypertensives. We will initiate if needed. Blood pressure is currently stable. 02/01/2025: BP ranging around 140/90s and currently on GDMT which could make BP on the lower side # Hx of CAD s/p 1 cardiac stent # History of CVA in 2020 Not on home meds. Start to continue aspirin 81 mg daily. # Sleep apnea Noncompliant with CPAP. Outpatient follow up. Continue CPAP at night time Code Status: Full code DVT Prophylaxis: Heparin Analgesia/Sedation: Acetaminophen Lines/Tubes: PIV Nutrition: Heart healthy diet PT: Ordered Prognosis: Guarded Disposition: Continue medical treatment including GDMT, monitoring labs and vitals, LifeVest, pending cardiology consultation, PT eval and DC plan including placement issue. Resident MD attestation: Patient was seen, examined and discussed with attending MD, Dr. Sergio MASON MD Internal Medicine Resident, PGY3 [facility] Date of Service: Feb 01, 2025 Billing Provider: DWIGHT GUTIERREZ MD Common Visit Codes: [id number] INP/OBS CARE(HIGH) FAZAL MASON, RES Feb 01, 2025 18:38 DWIGHT GUTIERREZ MD Feb 02, 2025 14:42
[2025-02-01] MEDS: sacubitril/valsartan 24mg-26mg tablet PO SCH (19:34)
[2025-02-01 20:00] VITALS: RESP 20; O2SAT 94
[2025-02-01] MEDS ORDERED: furosemide 10 MG/1 ML 10ml inj IV SCH (20:00)
[2025-02-01 22:00] VITALS: BP 101/67; PULSE 79; RESP 22; TEMP 98; O2SAT 92
[2025-02-02] VITALS (8 sets, daily range): BP systolic 95–110; BP diastolic 55–77; PULSE 71–75; RESP 16–17; TEMP 97.5–97.9; O2SAT 92–98
[2025-02-02 06:34] LABS: MEAN PLATELET VOLUME 8.6 FL (7.4-10.4); RED CELL DISTRIBUTION WIDTH 15.5 % (11.5-14.5)
[2025-02-02 06:53] LABS: % IRON SATURATION 23 % (11-46)
[2025-02-02 07:10] LABS: CHOL/HDL RATIO 3.7 (0.00-4.99); CREATININE 1.72 MG/DL (0.60-1.10); LDL CHOLESTEROL 87 MG/DL (50-100); PRO BRAIN NATRIURETIC PEPTIDE 6715 PG/ML (0-125); TOTAL CARBON DIOXIDE 26.1 MMOL/L (24-32); eCRCL 53 ML/MIN; eGFR 41 ML/MIN
--- NOTE | 2025-02-02 15:09 | CONSULTATION REPORT - RESIDENT ---
Consult Providers to CC Resident Creating Document: LEILA UMUANNE Parker RES History of Present Illness Reason for Admit\Complaint: Shortness of breath History of Present Illness 59 years old male patient came to the hospital with chief complaint of shortness of breath during the last three days. As per patient he never had experienced these symptoms before. He was completely asymptomatic three days back. He mentioned that even with rest he experienced some shortness of breath. Associated to these he also mentioned some SOB when they down flat. He denied chest pain, cough, palpitations or losing consciousness. Associated to these symptom the patient also reported bilateral lower extremity swelling. He does have history of CAD with stent placement one year ago, as per medical records he lost his follow-up with his blister pack operator. As per patient he is currently living in [place], [facility] by himself, he endorsed using amphetamines. He currently denies any chest pain, palpitations, dizziness. Allergies: Coded Allergies: No Known Allergies (Unverified , 03/15/21) Home Medications Home Medications Active Reported No Home Medications (Home Med List) Each Past Medical History Past Medical History CAD s/p stenting one year ago History of CVA in 2020 DM not on medications HTN not on medications Sleep apnea, has used CPAP before, not compliant currently Past Surgical History Surgical History Comment Appendectomy Tonsillectomy Family History Family History: Patient reports no known family medical history. Past Social History Social History Comment Patient is currently homeless. Lives in [facility]. He has a cat and he left it with a friend for now. Wants to get discharged as soon as possible but does not want to leave [place]. Patient does not have a PCP, no blister pack operator and does not follow up with any other specialists. Uses cane for ambulation. Exam Vitals: Vital Signs Date Time Temp Pulse Resp B/P (MAP) Pulse Ox O2 Delivery O2 Flow Rate FiO2 02/02/25 11:00 97.9 71 16 103/69 (80) 95 Room Air 02/02/25 08:00 0.0 02/02/25 07:39 21 Physical exam: General: Well alert, well oriented, not confused, not agitated, not in acute distress, well cooperated during the physical. HEENT: Conjunctive are pink, sclerae clear, no icterus, pupil is equal in both sides, reactive to light, no ear discharge, no pharyngeal erythema or an edema. Neck: Supple, no JVD, no lymphadenopathy and thyromegaly. Chest: Equal air entry on both lungs, no additional sounds no rhonchi no wheezing at the moment. Cardiovascular: S1-S2 regular sinus rhythm and, regular rate, no gallops, no rubs, no murmurs Abdomen: No visible peristalsis, Bowel sounds present on auscultation, soft, nontender, no guarding, no rigidity Extremities: No obvious deformities, 1+ pedal edema, capillary refill intact, peripheral pulsations are intact on both sides Central Nervous System: No focal neurological deficits, no motor or sensory weakness in all 4 extremities, could move all 4 extremities, 2+ deep tendon reflexes, negative Babinski. Musculoskeletal: No joint swelling, deformities, inflammations, and no scoliosis and back tenderness Skin: Warm and dry. Diagnostic Data Last Recorded Lab Results: 02/02/25 0610 02/02/25 0610 Diagnostic Data: Laboratory Tests Test 01/31/25 23:56 02/01/25 07:41 D-Dimer 2.87 MG/L FEU (0-0.50) H D-Dimer Comment Prothrombin Time 11.9 SECONDS (9.0-12.0) INR International Normalized Ratio 1.2 INR Coagulation Comments Additional Plan Assessment and plan: 59 years old male patient came to the hospital with chief complaint of shortness of breath. Acute exacerbation of systolic congestive heart failure: Amphetamine induced cardiomyopathy: Pulmonary embolism-ruled out: A: The patient came to the hospital with chief complaint of shortness of breath, lower extremity edema was evidenced. PBNP: [id number]. Echocardiogram: There is severe LV systolic dysfunction present. Overall estimated LVEF is about 20-25%. Normal LV size and wall thickness. Overall systolic function is severely reduced. RV is severely dilated with normal function. PA systolic pressure of 61 mm of mercury. Trileaflet AV appears normal without stenosis. Mild insufficiency. Mild MV annular calcification without stenosis. Mild tomorrow regurgitation. TV appears structurally normal with moderate regurgitation. Normal PV without stenosis, physiologic insufficiency. Normal pericardium. No effusion. Left Pleural effusion is present. CTA: No pulmonary embolism. Large bilateral pleural effusions with adjacent atelectasis. CXR: Diffuse interstitial opacities suggesting edema or atypical infection. Plan: Jardiance 10 mg daily. Lasix 40 mg IV daily. Metoprolol 25 mg daily. Entresto half tablet of 25-26 mg b.i.d. Spironolactone 12.5 mg daily. Strict I&O. Daily weights. Strong recommendation to stop amphetamine use given to the patient who appears to understand the risk of continuing the use of drugs. Normocytic normochromic anemia: Acute kidney injury likely secondary to renal tubular necrosis: Type 2 diabetes mellitus: Last hemoglobin A1c: 6.1. Hypertension: H/O CAD s/p one cardiac stent: H/O of CVA in 2020: Was not on home meds. Currently on aspirin 81 mg daily. Obstructive sleep apnea: Noncompliant with CPAP. Code status: Full code DVT prophylaxis: Heparin 5000 units b.i.d. Analgesia/sedation: Acetaminophen Line/tube: PIV GI prophylaxis: None Nutrition: Heart healthy diet PT: yes Prognosis: Guarded Disposition: Continue GDMT, we will continue to monitor the patient. Anne Gold Internal Medicine Resident [facility] Patient seen and examined by Dr. Rodrigo SHOEMAKER. Agree with good GDMT, patient education, social work consult and finding a PMD are more important. Above measures would more than meet the standard of care. Would hold off on LifeVest at this time and reassess ejection fraction in three months and compliancy and then make a decision on that time. Sepsis Screening Reassessment Date: Feb 02, 2025 Date of Service: Feb 02, 2025 Billing Provider: OMAYRA RUSSO MD, FRANCO LUIS, RES Feb 02, 2025 15:09 OMAYRA RUSSO MD Feb 02, 2025 19:04
--- NOTE | 2025-02-02 17:20 | PROGRESS NOTE- Residence ---
Progress Note - Resident Providers to CC Resident Creating Document: FAZAL MASON, ERIC ~ Antibiotic Timeout Antibiotic Ordered?: No Subjective pt reported for much better and improved SOB since admission. He was explained about the possible meth induced cardiomyopathy related declining EF to 20-25% what he needs to be on the LifeVest and explained how it works, and role of GDMT to strength back the EF. Objective Vital Signs Date Time Temp Pulse Resp B/P (MAP) Pulse Ox O2 Delivery O2 Flow Rate FiO2 02/02/25 15:00 97.5 73 17 95/55 (68) 93 Room Air 02/02/25 08:00 0.0 02/02/25 07:39 21 Result Diagram: 02/02/25 0610 02/02/25 0610 Vitals were stable at the moment with temp 97.9 F, LA 75/minute, RR 70/minute, BP 110/77 mm Hg, pulse oximetry 95% on nasal cannula 2 L/min. On exam, General: Well alert, well oriented, not confused, not agitated, not in acute distress, well cooperated during the physical. HEENT: Conjunctive are pink, sclerae clear, no icterus, pupil is equal in both sides, reactive to light, no ear discharge, no pharyngeal erythema or an edema, mouth and lips are moist. Neck: Supple, no JVD, no lymphadenopathy and thyromegaly. Lungs:Equal air entry on both lungs, no additional sounds Heart: S1-S2 regular sinus rhythm and, regular rate, no gallops, no rubs, no murmurs Abdomen: No visible peristalsis, Bowel sounds present on auscultation, soft, nontender, no guarding, no rigidity Extremities: No obvious deformities, 1+ pitting edema bilaterally, capillary refill intact, able to wiggle toes both sides, peripheral pulsations are intact on both sides, scratch asencio on bilateral legs. SPECIAL EDUCATION SUPERINTENDENT: No focal neurological deficits, no motor and sensory weakness in all 4 extremities, could move all 4 extremities Musculoskeletal: No joint swelling, deformities, inflammations, and no scoliosis and back tenderness Skin: No active skin lesions and rashes Coagulation Studies Laboratory Tests Test 01/31/25 23:56 02/01/25 07:41 D-Dimer 2.87 MG/L FEU (0-0.50) H D-Dimer Comment Prothrombin Time 11.9 SECONDS (9.0-12.0) INR International Normalized Ratio 1.2 INR Coagulation Comments Assessment Assessment A 59 years old male with a past medical history of substance use disorder- methamphetamine, CAD s/p one cardiac stent a year ago, CVA, hypertension, T2 DM, ELDA with BMI 27, presented to ER with acute progressive worsening of shortness of breaths over three days who was admitted to the hospital for further evaluation and management plan. Plan Plan # acute hypoxic respiratory failure from below # Newly diagnosesd acute decompensated/exacerbated CHFrEF 20-25% possibly from below # Methamphetamine induced cardiomyopathy # trace left pleural effusion # Slightly elevated Trop on admission- possibly from T2DM due to acute hypoxic respiratory distress Large bilateral pleural effusions X-ray chest shows pulmonary edema with trace bilateral pleural effusions. EKG shows bifascicular block with right bundle branch block and left axis deviation. Echocardiogram in 2020 showed ejection fraction of 60-65% with no structural abnormalities. [place] [id number]. PE ruled out with CTA chest. Follow up with repeat echocardiogram. Patient received one dose of furosemide 40 mg in the ED. Ordered IV furosemide 40 mg twice daily. Evaluate for thoracentesis. Daily weights. Water restriction 1.5 L per day. Strict intake and output. Consider Cardiology consultation for new onset CHF. 02/01/2025: 2D echocardiogram on 02/01/2025 showed LVEF 20-25% with severe systolic dysfunction, severely dilated RV, PASP 61 mm Hg, mild MR, moderate TR, normal pericardium and no effusion, left pleural effusion present. -his EF dropped down from 65% in 2019 1-20 to 25% -Ordered Life Vest -started GDM T-metoprolol, Entresto, Jardiance and MRA -continue Lasix 40 b.i.d., daily weights measurement, and strict I's and O's, water restriction 1.5 L. -trending down stable troponin [id number] -cardiology on-call Dr. Gauthier was requested for the consultation, appreciate it, and recommended for GDMT, meth usage cessation encouragement and Outpatient monitoring. -appreciate for social work program coordinator/substance navigation consultation for history of nicotine and amphetamine use. 02/02/2025: Continue GDMT, will plan to titrate up as per tolerated BP -Cardiology Dr Gauthier consulted and recommended to continue GDMT on discharge, regular follow up for the improvemet with [facility], and Dr Gauthier will follow up in the outpatient if pt is compliance # normochromic normocytic anemia -mostly from the early stage of SELAM from low intake Vs acute Blood loss -which could contribute the heart failure exacerbation e.g. high output HF -studied Iron to replace if necessary -Ordered FOBT in the presence of BUN elevation for possible GI blood loss -encourage iron and protein enriched diet 02/02/25: Iron study showed WNL except for the low TIBC which could reflect low protein storage -encourage protein diet intake -pending transferrin -no bowel movement for FOBT -hemoglobin stabilized # MINNA likely secondary to renal tubular necrosis from previous Meth used Vs Contrast induced Creatinine 1.78, BUN 31, EGFR 39. Patient also received contrast for CTA chest. Carefully monitor kidney function. Continue Lasix 40 mg b.i.d. Follow up with urine lytes. 02/01/2025: FENa calculation showed 27.1% which is intrinsics renal cause of MINNA most probably from the previous meth used versus CTA contrast induced damage to the kidney -daily monitoring renal function -IV fluid replacement is not feasible in the setting of elevated proBNP and acute decompensated CHF 02/02/2025: Lingering around creatinine 1.7, continue daily monitoring # Type 2 Diabetes mellitus Medication noncompliance HB A1c 10.7 in 2020. Follow up with a repeat HB A1c. We will initiate the patient on hyperglycemia/hypoglycemia protocol if needed. 02/01/2025: HGB A1c 6.1, hemoglobin 12.3 -started on Jardiance -continue daily RBS monitoring, we will consider hypo/hyperglycemic protocol if necessary 02/02/25: pt's HbA1C was controlled and continue Jardiance -continue monitoring daily sugar # Hypertension Medication noncompliance Patient not on any home antihypertensives. We will initiate if needed. Blood pressure is currently stable. 02/01/2025: BP ranging around 140/90s and currently on GDMT which could make BP on the lower side 02/02/25: BP is on the lower side on half dosage of GDMT # Hx of CAD s/p 1 cardiac stent # History of CVA in 2020 Not on home meds. Start to continue aspirin 81 mg daily. # Sleep apnea Noncompliant with CPAP. Outpatient follow up. Continue CPAP at night time Code Status: Full code DVT Prophylaxis: Heparin Analgesia/Sedation: Acetaminophen Lines/Tubes: PIV Nutrition: Heart healthy diet PT: Ordered Prognosis: Guarded Disposition: Continue medical treatment including GDMT, monitoring labs and vitals, LifeVest, PT eval and DC plan including placement issue. Resident MD attestation: Patient was seen, examined and discussed with attending MD, Dr. Sergio MASON MD Internal Medicine Resident, PGY3 [facility] Date of Service: Feb 02, 2025 Billing Provider: DWIGHT GUTIERREZ MD Common Visit Codes: [id number] INP/OBS CARE(HIGH) FAZAL MASON, RES Feb 02, 2025 17:20 DWIGHT GUTIERREZ MD Feb 05, 2025 11:34
[2025-02-03 02:00] VITALS: BP 99/66; PULSE 77; RESP 17; TEMP 97.6; O2SAT 92
[2025-02-03 06:00] VITALS: BP 112/83; PULSE 79; RESP 17; TEMP 98.1; O2SAT 99
[2025-02-03 06:47] LABS: MEAN PLATELET VOLUME 8.6 FL (7.4-10.4); RED CELL DISTRIBUTION WIDTH 15.6 % (11.5-14.5)
[2025-02-03 07:57] LABS: CREATININE 1.74 MG/DL (0.60-1.10); PRO BRAIN NATRIURETIC PEPTIDE 2439 PG/ML (0-125); TOTAL CARBON DIOXIDE 24.8 MMOL/L (24-32); eCRCL 52 ML/MIN; eGFR 40 ML/MIN
[2025-02-03 08:00] VITALS: RESP 16; O2SAT 99
[2025-02-03 08:19] VITALS: PULSE 76; RESP 20; O2SAT 92
--- NOTE | 2025-02-03 10:23 | PROGRESS NOTE- Residence ---
Progress Note - Resident Providers to CC Resident Creating Document: LEILA UMUANNE Parker, RES ~ Antibiotic Timeout Antibiotic Ordered?: No Subjective The patient has been evaluated at the bedside. Currently asymptomatic, recommended to disclose his problem with methamphetamine use with his children, the patient states that he will talk with his son, looking for help. Objective Vital Signs Date Time Temp Pulse Resp B/P (MAP) Pulse Ox O2 Delivery O2 Flow Rate FiO2 02/03/25 08:19 76 20 92 Room Air* 0 21 02/03/25 06:00 98.1 112/83 (93) Physical exam: General: Well alert, well oriented, not confused, not agitated, not in acute distress, well cooperated during the physical. HEENT: Conjunctive are pink, sclerae clear, no icterus, pupil is equal in both sides, reactive to light, no ear discharge, no pharyngeal erythema or an edema. Neck: Supple, no JVD, no lymphadenopathy and thyromegaly. Chest: Equal air entry on both lungs, no additional sounds no rhonchi no wheezing at the moment. Cardiovascular: S1-S2 regular sinus rhythm and, regular rate, no gallops, no rubs, no murmurs Abdomen: No visible peristalsis, Bowel sounds present on auscultation, soft, nontender, no guarding, no rigidity Extremities: No obvious deformities, 1+ pedal edema, capillary refill intact, peripheral pulsations are intact on both sides Central Nervous System: No focal neurological deficits, no motor or sensory weakness in all 4 extremities, could move all 4 extremities, 2+ deep tendon reflexes, negative Babinski. Musculoskeletal: No joint swelling, deformities, inflammations, and no scoliosis and back tenderness Skin: Warm and dry. Result Diagram: 02/03/25 0558 02/03/25 0558 Coagulation Studies Laboratory Tests Test 01/31/25 23:56 02/01/25 07:41 D-Dimer 2.87 MG/L FEU (0-0.50) H D-Dimer Comment Prothrombin Time 11.9 SECONDS (9.0-12.0) INR International Normalized Ratio 1.2 INR Coagulation Comments Assessment Assessment 59 years old male patient came to the hospital with chief complaint of shortness of breath. Plan Plan Acute exacerbation of systolic congestive heart failure: Amphetamine induced cardiomyopathy: Pulmonary embolism-ruled out: A: The patient came to the hospital with chief complaint of shortness of breath, lower extremity edema was evidenced. PBNP: [id number]. Echocardiogram: There is severe LV systolic dysfunction present. Overall estimated LVEF is about 20-25%. Normal LV size and wall thickness. Overall systolic function is severely reduced. RV is severely dilated with normal function. PA systolic pressure of 61 mm of mercury. Trileaflet AV appears normal without stenosis. Mild insufficiency. Mild MV annular calcification without stenosis. Mild tomorrow regurgitation. TV appears structurally normal with moderate regurgitation. Normal PV without stenosis, physiologic insufficiency. Normal pericardium. No effusion. Left Pleural effusion is present. CTA: No pulmonary embolism. Large bilateral pleural effusions with adjacent atelectasis. CXR: Diffuse interstitial opacities suggesting edema or atypical infection. Plan: Jardiance 10 mg daily. Lasix 20 mg po daily. Metoprolol 25 mg daily. Entresto half tablet of 25-26 mg b.i.d. Spironolactone 12.5 mg daily. Strict I&O. Daily weights. Strong recommendation to stop amphetamine use given to the patient who appears to understand the risk of continuing the use of drugs. Recommended to involve his family in order to get some help, the patient showed interest in sharing this with his children. resident services coordinator consulted, resources given to the patient. Normocytic normochromic anemia: Acute kidney injury likely secondary to renal tubular necrosis: Type 2 diabetes mellitus: Last hemoglobin A1c: 6.1. Hypertension: H/O CAD s/p one cardiac stent: H/O of CVA in 2020: Was not on home meds. Currently on aspirin 81 mg daily. Obstructive sleep apnea: Noncompliant with CPAP. Code status: Full code DVT prophylaxis: Heparin 5000 units b.i.d. Analgesia/sedation: Acetaminophen Line/tube: PIV GI prophylaxis: None Nutrition: Heart healthy diet PT: yes Prognosis: Guarded Disposition: Continue GDMT, decreasing Lasix to 20 mg IV daily. We will hold off in life vest and reassess ejection fraction in three months and complaints he to make the decision at that time. Anne Gold Internal Medicine Resident [facility] Patient seen and examined by Dr. Rodrigo SHOEMAKER. The importance of substance abuse cessation and continued follow up with an compliance with GDM T medication emphasized to the patient Date of Service: Feb 03, 2025 Billing Provider: CHANDRAMOULOMAYRA Trejo MD, FRANCO LUIS, RES Feb 03, 2025 10:23 OMAYRA RUSSO MD Feb 03, 2025 17:15
[2025-02-03] MEDS ORDERED: SACU1TAB PO (10:41)
[2025-02-03] MEDS ORDERED: ASPI-1071 PO (10:41)
[2025-02-03] MEDS ORDERED: EMPA10TA PO (10:41)
[2025-02-03] MEDS ORDERED: FURO-150 PO (10:41)
[2025-02-03] MEDS ORDERED: SPIR25TA PO (10:41)
[2025-02-03] MEDS ORDERED: METO-395 PO (10:41)
--- NOTE | 2025-02-03 10:58 | DISCHARGE SUMMARY-Residence ---
Discharge Summary Providers to CC Resident Creating Document: NEWTON PRITCHETT RES ~ Discharge Summary Admission Diagnosis: New onset CHF Hospital Course DATE OF ADMISSION: DATE OF DISCHARGE: Discharge Diagnosis\Comment: # acute hypoxic respiratory failure from below # Newly diagnosesd acute decompensated/exacerbated CHFrEF 20-25% possibly from below # Methamphetamine induced cardiomyopathy # trace left pleural effusion # Slightly elevated Trop on admission- possibly from T2DM due to acute hypoxic respiratory distress # normochromic normocytic anemia # IMNNA likely secondary to renal tubular necrosis from previous Meth used Vs Contrast induced # Type 2 Diabetes mellitus - well controlled # Hypertension # Hx of CAD s/p 1 cardiac stent # History of CVA in 2020 # Sleep apnea Operations\Procedures: None Consultants: Cardiology Complications: None Condition on DC: Stable New Medications: Furosemide (Lasix) 20 Mg Tablet 20 MG PO DAILY for 30 Days, #30 TAB Aspirin (Ecotrin*) 81 Mg Tablet.dr 1 TAB PO DAILY for 30 Days, #30 TAB.SR Empagliflozin (Jardiance) 10 Mg Tablet 10 MG PO DAILY for 30 Days, #30 TAB Metoprolol Succinate (Metoprolol Succinate) 25 Mg Tab.sr.24h 25 MG PO DAILY for 30 Days, #30 TAB.SR Sacubitril/Valsartan (Entresto 24 mg-26 mg Tablet) 24 Mg-26 Mg Tablet 0.5 TABLET PO BID for 30 Days, #60 TAB Spironolactone (Aldactone) 25 Mg Tablet 12.5 MG PO DAILY@0830 for 30 Days, #30 TAB Discharge Summary: History of present illness The patient is a 59-year-old male with past medical history of CAD s/p stenting last year, CVA, DM, HTN, substance use disorder, presented to the ED with complaints of worsening shortness of breath since the last three days. Patient was apparently asymptomatic three days back when he developed shortness of breath which is present even during rest. Orthopnea and PND present. Not associated with a cough, chest pain, palpitations or syncope. Reported bilateral leg swelling. 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 He is currently homeless and continues to consume methamphetamines. Does not have a PCP. Does not use any medications. Hospital course 59-year-old male patient admitted for progressive shortness of breath, pulmonary edema and acute CHF exacerbation most likely secondary to methamphetamine use disorder. Echocardiogram showed severely reduced systolic function with EF 20- 25%. Patient was treated with IV Lasix and started on metoprolol, Entresto, spironolactone, Jardiance and aspirin for coronary artery disease. Patient had significant improvement after proper diuresis and tolerated GDMT without side effects. Patient is stable to be discharged with outpatient follow-up. Discharge physical exam General: Well alert, well oriented, not confused, not agitated, not in acute distress, well cooperated during the physical. HEENT: Conjunctive are pink, sclerae clear, no icterus, pupil is equal in both sides, reactive to light, no ear discharge, no pharyngeal erythema or an edema, mouth and lips are moist. Neck: Supple, no JVD, no lymphadenopathy and thyromegaly. Lungs:Equal air entry on both lungs, no additional sounds Heart: S1-S2 regular sinus rhythm and, regular rate, no gallops, no rubs, no murmurs Abdomen: No visible peristalsis, Bowel sounds present on auscultation, soft, nontender, no guarding, no rigidity Extremities: No obvious deformities, 1+ pitting edema bilaterally, capillary refill intact, able to wiggle toes both sides, peripheral pulsations are intact on both sides, scratch asencio on bilateral legs. PATENT LEATHER SORTER: No focal neurological deficits, no motor and sensory weakness in all 4 extremities, could move all 4 extremities Musculoskeletal: No joint swelling, deformities, inflammations, and no scoliosis and back tenderness Skin: No active skin lesions and rashes Discharge medications See below Discharge instructions Follow-up with primary care physician in 1-2 weeks Follow-up with Dr. Gauthier (Office number [phone]) Take aspirin, Jardiance, metoprolol, Lasix and spironolactone daily Take half Entresto twice a day Repeat echocardiogram in three months to assess ejection fraction Abstain from methamphetamine use You are being started on heart failure multiple medication which can give you hypotension, dizziness and lightheadedness. Please measure your blood pressure regularly and follow-up closely with your PCP. Come back in case of syncope, chest pain, progressive shortness of breath or any concerning symptoms *Problems/Diagnosis: (1) Type 2 myocardial infarction due to heart failure Status: Acute (2) Acute hypoxemic respiratory failure Status: Resolved (3) Pulmonary edema cardiac cause Status: Acute (4) Acute kidney injury (MINNA) with acute tubular necrosis (ATN) (5) Coronary artery disease (6) Tobacco abuse Status: Acute (7) Methamphetamine abuse Status: Acute (8) Shortness of breath Status: Acute (9) Orthopnea Status: Acute (10) Homelessness Status: Chronic (11) Elevated d-dimer Status: Acute (12) New onset of congestive heart failure Status: Acute (13) Anemia Status: Chronic Total Time Spent on D/C: > 30 Minutes Date of Service: Feb 03, 2025 Billing Provider: DWIGHT GUTIERREZ MD Common Visit Codes: 34917-ZRF/OBS DISCH DAY >30min NEWTON PRITCHETT, RES Feb 03, 2025 10:54 DWIGHT GUTIERERZ MD Feb 05, 2025 11:34
[2025-02-03 11:00] VITALS: BP_SYST 94; BP_SYST 95; BP_DIAS 50; BP_DIAS 59; PULSE 63; PULSE 72; RESP 17; TEMP 97.9; O2SAT 99
[2025-02-04] MEDS ORDERED: LOSA50TA64 PO (17:01)
== END 2025-02-03 14:15 | disposition home or self-care (01) | DRG 133 ==
LOC: ER 23:10 → ED HOLD 02-01 04:18 → PCU 3S 02-01 13:15
PROVIDERS: ADMIT Internal Medicine Critical Care Medicine; ATTEND Internal Medicine
PROC: B32T1ZZ Computerized Tomography (CT Scan) of Left Pulmonary Artery using Low Osmolar Contrast (ICD-10-PCS; principal; 2025-02-01)
PROC: B3201ZZ Computerized Tomography (CT Scan) of Thoracic Aorta using Low Osmolar Contrast (ICD-10-PCS; 2025-02-01)
PROC: B32S1ZZ Computerized Tomography (CT Scan) of Right Pulmonary Artery using Low Osmolar Contrast (ICD-10-PCS; 2025-02-01)
DX: J96.01 Acute respiratory failure with hypoxia (principal); N17.0 Acute kidney failure with tubular necrosis; I50.23 Acute on chronic systolic (congestive) heart failure; I11.0 Hypertensive heart disease with heart failure; I42.7 Cardiomyopathy due to drug and external agent; Z59.00 Homelessness unspecified; E11.9 Type 2 diabetes mellitus without complications; D64.9 Anemia, unspecified; Z20.822 Contact with and (suspected) exposure to COVID-19; F15.90 Other stimulant use, unspecified, uncomplicated; I25.10 Atherosclerotic heart disease of native coronary artery without angina pectoris; G47.30 Sleep apnea, unspecified; Z86.73 Personal history of transient ischemic attack (TIA), and cerebral infarction without residual deficits; Z90.49 Acquired absence of other specified parts of digestive tract; Z91.148 Patient's other noncompliance with medication regimen for other reason
CPT/HCPCS: 36415; 71045; 71275; 80053; 80061; 80305; 81003; 82570; 82728; 83036; 83540; 83550; 83735; 83880; 83930; 83935; 84300; 84466; 84484; 85025; 85379; 85610; 87081; 87811; 93005; 93306; 94760; 99285; A4615; G0378; J1644; J1938; J2405

== ENCOUNTER 2025-02-22 11:18 | Inpatient (IN) | payer MEDICAID ==
[~2025-02-22] VITALS: Ht 188 cm; Wt 90.9 kg
[~2025-02-22 11:18] MED LIST changes: -AMLO2.5T5 PO; -ATOR10TA PO; +EMPA10TA PO; +FURO-150 PO; +LOSA50TA64 PO; +METO-395 PO; +NO HOME MEDS; +SPIR25TA PO
--- NOTE | 2025-02-22 11:24 | ELECTROCARDIOGRAPH REPORT ---
[facility] Test Date: 2025-02-22 Test Time: 11:22:35 Pat Name: KOFI LAWRENCE Department: EMERGENCY ROOM Patient ID: [facility]-[id number] Room: ED 15 Gender: M Commissioned [employer] Officer: JOVANI : 1965 Requested By: NELSON ROBLES Order Number: [id number] Reading MD: Dr. Tyler Chau Measurements Intervals [place] Rate: P: 0 NH: 0 QRS: 0 QRSD: 0 T: 0 QT: 0 QTc: 0 Interpretive Statements All 12 leads are missing Electronically Signed On 02-22-2025 18:17:[address] Tyler Chau Please click the below link to view image of tracing.
--- NOTE | 2025-02-22 11:43 | Physician Documentation ---
History of Present Illness ~ Chief Complaint: Stroke Alert Stated Complaint: RIGHT SIDED WEAKNESS Time Seen by MD: 11:30 Primary Medical Doctor: [facility] 59-year-old male, history of reported stroke in the past, presenting with right- sided weakness He tells me that he felt normal yesterday including when he went to bed. When he woke up this morning, he could not stand up. He noticed that he was very weak on his right side including the right side of his face, right arm, and right leg. The right leg is the worst. His speech seems slurred. He reports a history of a stroke in the past with some mild right-sided weakness , but states that this is worse Medication Reconciliation Allergies: Coded Allergies: No Known Allergies (Unverified , 03/15/21) Scheduled Aspirin (Ecotrin*), 1 TAB PO DAILY Empagliflozin (Jardiance), 10 MG PO DAILY Furosemide (Lasix), 20 MG PO DAILY Losartan Potassium (Losartan Potassium), 25 MG PO DAILY Metoprolol Succinate (Metoprolol Succinate), 25 MG PO DAILY Spironolactone (Aldactone), 12.5 MG PO DAILY@0830 Miscellaneous Medications Home Med List (No Home Medications), (Reported) Past Medical History Past Medical History: CVA/TIA/Stroke, Hypertension, Diabetes Past Surgical History: noncontributory Patient History: Patient reports no known family medical history. Alcohol Use: Occasionally Drug Use: methamphetamine Lives In: Home Review of Systems Neurological: Reports: right sided weakness, problems walking; Denies: right sided numbness Physical Exam Vital Signs: Temperature: 98.0, Source: Oral, Heart Rate: 85, Respiratory Rate: 18, BP: 141/104, Pulse Oximetry: 97, Weight: 90.910 Oxygen Flow Rate: 0 General Appearance Brief initial ER physical exam: General: This is a middle-aged man, lying quietly in bed, alert and talking HEENT: Right-sided facial droop, with slight dysarthria. Normal sensation to light touch in the facial distributions bilateral Heart: Regular rate and rhythm, normal-appearing peripheral perfusion Lungs: normal work of breathing, normal oxygen saturation on room air Neuro: Alert and oriented. Facial droop and dysarthria as above. The patient has mild right arm weakness and decreased exhibits manager strength but he can lift his arm up off the bed. Normal sensation to light touch in the right arm Significant right leg weakness, he can not raise his leg up off the bed. Psychiatric: Calm and cooperative with exam Progress Results/Orders Results/Orders Orders - NELSON ROBLES MD Monitor (02/22/25 11:23) 2 Large Bore Ivs (02/22/25 11:23) Chest,Single View (02/22/25 11:23) Accucheck (02/22/25 11:23) Ct Stroke Alert (02/22/25 11:23) [place] Prov.Neuro Consult (02/22/25 11:23) Cta Neck/Head (02/22/25 11:40) Page Hospitalist (02/22/25 12:09) Completed Orders - NELSON ROBLES MD Cbc/Diff (02/22/25 11:23) Electrocardiogram (02/22/25 11:23) Chest,Single View (02/22/25 11:23) Ct Stroke Alert (02/22/25 11:23) BMP (02/22/25 11:23) PTT (02/22/25 11:23) Pt Inr (02/22/25 11:23) Cta Neck/Head (02/22/25 11:40) Iohexol 350mg/Ml 100ml (Omnipaque 350mg/ (02/22/25 11:45) Aspirin 81mg Chew Tablet (Aspirin 81mg C (02/22/25 12:10) Atorvastatin Tablet (Lipitor Tablet) (02/22/25 12:10) Medications Received in ER Medications (Trade) Dose Ordered Sig/Deena Route PRN Reason Start Time Stop Time Status Last Admin Dose Admin (aspirin 81MG chew tablet) 324 mg ONCE ONCE PO 02/22/25 12:10 02/22/25 12:11 DC 02/22/25 12:16 324 MG (Lipitor tablet) 80 mg ONCE ONCE PO 02/22/25 12:10 02/22/25 12:11 DC 02/22/25 12:16 80 MG Vital Signs 02/22/25 02/22/25 02/22/25 02/22/25 11:23 11:34 11:43 12:03 Temp 98.0 Pulse 85 72 77 Resp 18 20 23 B/P (MAP) 141/104 141/104 135/95 Pulse Ox 97 98 97 O2 Flow Rate 0 02/22/25 12:17 Pulse 73 Resp 16 B/P (MAP) 142/93 Pulse Ox 95 Laboratory Tests Test 02/22/25 11:30 02/22/25 11:37 Glucometer 212 H White Blood Count 6.3 Red Blood Count 4.27 L Hemoglobin 12.6 L Hematocrit 37.0 L Mean Corpuscular Volume 86.6 Mean Corpuscular Hemoglobin 29.5 Mean Corpuscular Hemoglobin Concent 34.0 Red Cell Distribution Width 16.3 H Platelet Count 141 Mean Platelet Volume 8.9 Neutrophils (%) (Auto) 83.2 H Lymphocytes (%) (Auto) 9.9 L Monocytes (%) (Auto) 5.7 Eosinophils (%) (Auto) 0.9 Basophils (%) (Auto) 0.3 Neutrophils # (Auto) 5.3 Lymphocytes # (Auto) 0.6 L Monocytes # (Auto) 0.4 Eosinophils # (Auto) 0.1 Basophils # (Auto) 0.0 CBC Comment Prothrombin Time 11.7 INR International Normalized Ratio 1.2 Activated Partial Thromboplast Time 28 Coagulation Comments Sodium Level 140 Potassium Level 4.1 Chloride Level 106 Carbon Dioxide Level 25.3 Anion Gap 9 Blood Urea Nitrogen 38 H Creatinine 1.92 H Estimated GFR/1.73 m2 36 BUN/Creatinine Ratio 19.8 Glucose Level 176 H Calcium Level 9.1 Albumin 3.4 Chemistry Comments EKG/XRAY/CT/US/VASC/MRI CT : Impression I personally interpreted the CT scan, and this shows no acute intracranial hemorrhage CTA: No large vessel occlusion Consults/PCP Consults/PCP : Additional Comment Consult: Stroke neurology consulted for evaluation and recommendations -they recommend admission for stroke workup, aspirin and atorvastatin Consult: I spoke to the internal medicine service, for admission in the hospital Medical Decision Making Additional Information The patient presents with findings concerning for possible stroke, with right- sided weakness. Last normal was greater than 6 hours ago, and so he is not a TNK candidate. He was taken for emergent brain imaging which does not show high hemorrhage or large vessel occlusion. Stroke neurology emergently consulted as well. This all appears consistent with an acute ischemic stroke. He will be admitted to the medicine service for further stroke workup and treatment. Departure Impression: Primary Impression: Cerebrovascular accident Additional Impression: Right sided weakness Referrals: NO PRIMARY CARE PROVIDER (PCP) Critical Care Note Critical Care Note Critical Care Note The very real possibility of a deterioration of this patient's condition required the highest level of my preparedness for sudden, emergent intervention. I provided critical care services, which included medication orders, frequent reevaluations of the patient's condition and response to treatment, ordering and reviewing test results, and discussing the case with various consultants. Excludes time spent performing separately billable procedures. The critical care time associated with the care of the patient was 45 minutes in the management of an acute ischemic stroke Signature Scribe Signature: jem Attestation: NELSON Umanzor MD Feb 22, 2025 11:43
[2025-02-22 11:52] LABS: MEAN PLATELET VOLUME 8.9 FL (7.4-10.4); RED CELL DISTRIBUTION WIDTH 16.3 % (11.5-14.5)
[2025-02-22 11:59] LABS: CREATININE 1.92 MG/DL (0.60-1.10); TOTAL CARBON DIOXIDE 25.3 MMOL/L (24-32); eCRCL 48 ML/MIN; eGFR 36 ML/MIN
[2025-02-22 12:01] LABS: APTT 28 SECONDS (22-32); INR 1.2 INR
--- NOTE | 2025-02-22 12:06 | RADIOLOGY REPORT ---
EXAM: CT CT STROKE ALERT INDICATION: Stroke Alert TECHNIQUE: CT of the head without intravenous contrast. Coronal and sagittal reformatted images are submitted. Radiation Dose : 1. Head: CT Dose: CTDI volume is 64.2 mGy. Dose-length product is 1111.1 mGy*cm The dose indicators for CT are the volume Computed Tomography (CT) Dose Index (CTDIvol) and the Dose Length Product (DLP), and are measured in units of mGy and mGy-cm, respectively. These indicators are not patient dose, but values generated from the CT scanner acquisition factors. The report includes radiation exposure data for exposures received during this examination. All CT scans at this medical facility are performed using dose modulation techniques as appropriate to a performed exam including the following: Automated exposure control was utilized; adjustment of the MA and/or KV according to patient size; and use of iterative reconstruction technique. COMPARISON: CT CTA NECK/HEAD on DOS: 02/22/25, MRI HEAD on DOS: 03/15/21, CT STROKE ALERT on DOS: 03/15/21 FINDINGS: There is no evidence of acute intracranial hemorrhage, extra-axial collection, mass effect, midline shift, herniation or hydrocephalus. There are periventricular and subcortical hypodensities, nonspecific, but likely reflecting sequelae of chronic microvascular ischemic changes. The ventricles, sulci and cisterns are age appropriate. The myers-white differentiation is intact. Mucosal thickening in the left maxillary sinus. The mastoid air cells are patent. No depressed calvarial fracture. The surrounding soft tissues are unremarkable. IMPRESSION: 1. No evidence of acute intracranial abnormality. Critical Findings: Stroke Alert Findings discussed with NELSON ROBLES at 02/22/2025 2:03 PM EQUAL OPPORTUNITY ASSISTANT, who acknowledged receipt and understanding of the findings.
--- NOTE | 2025-02-22 12:10 | [facility] CONSULT REPORT ---
[facility] Procedure Note [facility] Procedure Note Consult [facility] Note # Demographics Consult Type: Acute Stroke Level 2 (4.5-24 hrs) Patient Location: Emergency Room First Name: KOFI Last Name: MELINDA Date of : 1965 Age: 59 Gender: Male Facility: [facility] Time of Initial Page (): 02/22/2025 11:44 First Contact with Site (): 02/22/2025 11:44 # HPI Chief Complaint: - weakness (focal) History: 59M with prior stroke presents with right-sided weakness. LKWT 0000; woke with symptoms this morning at 0830, unable to walk. has right facial droop, dysarthria, mild right arm weakness, significant right leg weakness. # Scores Time of exam and NIHSS (): 02/22/2025 12:03 Level of Consciousness 1a: [0] = Alert; keenly responsive LOC Questions 1b: [0] = Answers both questions correctly LOC Commands 1c: [0] = Performs both tasks correctly Best Gaze 2: [0] = Normal Visual 3: [0] = No visual loss Facial Palsy 4: [1] = Minor paralysis Motor Arm Left 5a: [0] = No drift Motor Arm Right 5b: [1] = Drift Motor Leg Left 6a: [0] = No drift Motor Leg Right 6b: [3] = No effort against gravity Limb Ataxia 7: [0] = Absent Sensory 8: [0] = Normal Best Language 9: [0] = No aphasia Dysarthria 10: [1] = [id number]-wodydudl dysarthria Extinction and Inattention 11: [0] = No abnormality NIHSS Total: 6 # Data Time Head CT personally read by me (): 02/22/2025 11:[address]: - no bleed - preliminarily reviewed by me, please refer to radiology read for official reading Time CTA personally reviewed by me (): 02/22/2025 11:57 CTA Head: - no large vessel occlusion - preliminarily reviewed by me, please refer to radiology read for official reading CTA Neck: - patent vessels - preliminarily reviewed by me, please refer to radiology read for official reading # Assessment Impression: - Ischemic Stroke (Acute) # Plan Thrombolytic/Intervention: NOT IV Thrombolysis or IA Intervention candidate Thrombolytic Exclusion: > 4.5 hours Intraarterial Exclusion: - no large vessel occlusion (LVO) - non-disabling Target Blood Pressure: - SBP < 220 - DBP < 105 Labs: - hemoglobin A1c - lipid panel Imaging: (urgency: STAT): - CT Angiogram Head and CT Angiogram Neck AND call back with results if abnormal Imaging: (urgency: routine): - MRI Brain without contrast Diagnostic Test: - echo without bubble study Therapy/Evaluation: - PT/OT evaluation - speech/swallow consultation Medication: ASA 325 x1 then 81 daily Atorvastatin 80, then tailor to LDL < 70 goal Other: - If patient has any neurological deterioration please call me back immediately - permissive hypertension - telemetry monitoring - I have discussed my recommendations with the referring provider Disposition: admit # Logistics Attestation of consult completion: The patient is located at: [facility]. Facility staff participated in the visit. I performed this telemedicine visit from my offsite office utilizing interactive 2 way audio and visual telecommunication technology at the request of the onsite emergency room provider. Consent: Verbal consent was obtained from the patient and/or family for this encounter. Total time spent in telemedicine encounter: I spent 10 minutes reviewing clinical data and/or imaging, obtaining history, examining the patient, communicating with the onsite care team, and in preparation of this report. Electronically signed at 02/22/2025 12:10 ([place] Time) by Danny Acevedo MD Neuro Consult Order placed for: Yes DANNY ACEVEDO MD Feb 22, 2025 12:10
[2025-02-22] MEDS ORDERED: magnesium sulf-water 4G/100mL 100 ML IV PRN (12:20)
[2025-02-22] MEDS ORDERED: potassium Cl 40MEQ/1/2NS 520ml 520 ML IV PRN (12:20)
[2025-02-22] MEDS ORDERED: mag hydrox/Alum hydrox/simeth 30ml oral suspension PO PRN (12:20)
[2025-02-22] MEDS ORDERED: magnesium hydroxide 30ml (MOM) UD suspension PO PRN (12:20)
[2025-02-22] MEDS ORDERED: ondansetron/PF 4mg/2ml inj IV PRN (12:20)
[2025-02-22] MEDS ORDERED: HYDROcodone/acetaminophen 5mg/325mg tablet PO PRN (12:20)
[2025-02-22] MEDS ORDERED: magnesium sulf-water 2g/50mL 50 ML IV PRN (12:20)
[2025-02-22] MEDS ORDERED: magnesium Cl slow-release 64mg tablet PO PRN (12:20)
[2025-02-22] MEDS ORDERED: potassium Cl 20 mEq SR tablet PO PRN ×2 (12:20)
--- NOTE | 2025-02-22 12:20 | RADIOLOGY REPORT ---
INDICATION: stroke, right arm leg weak, face droop COMPARISON: CT CT STROKE ALERT on DOS: 02/22/25, MRI HEAD on DOS: 03/15/21 TECHNIQUE: CTA head with intravenous contrast. CTA neck with intravenous contrast. 3D image postprocessing was performed on a dedicated workstation and images were used for interpretation and reporting. Radiation Dose Information: CT Dose: CTDI volume is 16.7 mGy. Dose-length product is 672 mGy*cm FINDINGS: CTA head: There is normal enhancement of the visualized distal internal carotid, anterior and middle cerebral arteries. There is a normal anterior communicating artery complex. There are bilateral posterior communicating arteries. The vertebral, basilar, cerebellar and posterior cerebral arteries are within normal limits. The early parenchymal enhancement is grossly unremarkable. The visualized intracranial venous structures are grossly unremarkable. CTA neck: The visualized thoracic aortic arch and proximal great vessels are unremarkable. The left common, internal and external carotid arteries are within normal limits. The right common, internal and external carotid arteries are within normal limits. The cervical segments of the right and left vertebral arteries are within normal limits. Partially visualized bilateral pleural effusions. IMPRESSION: 1. No evidence of hemodynamically significant intracranial stenosis, proximal occlusion or aneurysm. 2. No evidence of hemodynamically significant cervical stenosis or dissection. 3. Partially visualized bilateral pleural effusions. All CT scans at this medical facility are performed using dose modulation techniques as appropriate to a performed exam including the following: Automated exposure control was utilized; adjustment of the MA and/or KV according to patient size; and use of iterative reconstruction technique.
--- NOTE | 2025-02-22 12:26 | RADIOLOGY REPORT ---
CLINICAL INFORMATION: 59 years old, Male; Stroke Alert. TECHNIQUE: Single AP portable chest radiograph was obtained. COMPARISON: CT CTA CHEST PE W/ IV CONTRAST on DOS: 02/01/25, DI CHEST,SINGLE VIEW on DOS: 01/31/25, CHEST,SINGLE VIEW on DOS: 03/15/21 FINDINGS: Lungs: Mild atelectasis in the lung bases. No focal consolidation. Cardiac: Borderline mild cardiomegaly. Pulmonary vasculature: Prominence of the pulmonary vasculature. Mediastinum/mey: Unremarkable. Bones: No acute osseous abnormality identified. Other: No other significant findings. IMPRESSION: 1. Borderline mild cardiomegaly and prominence of the pulmonary vasculature may be seen with pulmonary vascular congestion in the appropriate clinical setting. 2. Mild atelectasis in the lung bases. No focal consolidation.
[2025-02-22 14:43] LABS: CHOL/HDL RATIO 3.5 (0.00-4.99); LDL CHOLESTEROL 72 MG/DL (50-100)
--- NOTE | 2025-02-22 17:50 | HISTORY AND PHYSICAL-Residence ---
History & Physical Providers to Resident Creating Document: CHIKIS BEE RES ~ History of Present Illness Primary Medical Doctor: [facility] Reason for Admit\Complaint: CVA History of Present Illness This is a 59-year-old male with past medical history of CVA, hypertension, heart failure with reduced ejection fraction of 35-40%, type 2 diabetes who came to the ER due to right-sided weakness since 9:00 a.m. today morning. According to the patient, he had weakness in his right arm and leg on waking up such that he could not lift his arm overhead, not grasp objects. He was not able to move his right leg at all, found it very difficult to roll around in bed, difficulty standing up. He also noticed slurring of his speech, drooping of the left side of the face. The symptoms of confusion, disorientation, agitation, LOC, seizure-like activity. No bowel or bladder symptoms. No difficulty in hearing/eyesight. No symptoms of headache, palpitation, chest pain, leg swelling leading up to his symptoms. He takes his medications regularly. He admits to using meth occasionally. He has a history of severe 2-3 years ago during which time he had weakness in his right hand and right leg, but was less severe with very little residual weakness. He occasionally uses cane, but walks without assistance most of the time. Allergies: Coded Allergies: No Known Allergies (Unverified , 03/15/21) Home Medications Home Medications Active Losartan Potassium 50 Mg Tablet 25 Mg PO DAILY 30 Days Lasix (Furosemide) 20 Mg Tablet 20 Mg PO DAILY 30 Days Jardiance (Empagliflozin) 10 Mg Tablet 10 Mg PO DAILY 30 Days Ecotrin* (Aspirin) 81 Mg Tablet.dr 1 Tab PO DAILY 30 Days Aldactone (Spironolactone) 25 Mg Tablet 12.5 Mg PO DAILY@0830 30 Days Metoprolol Succinate 25 Mg Tab.sr.24h 25 Mg PO DAILY 30 Days Reported No Home Medications (Home Med List) Each Past Medical History Past Medical History Past history of CVA 2-3 years ago Hypertension Heart failure with reduced ejection fraction of 45-40% Type 2 diabetes Past Surgical History Surgical History Comment Appendectomy Tonsillectomy Family History Family History: Patient reports no known family medical history. Past Social History Smoking: Quit greater than 1 year (Used to smoke for 30 years, 1 pack a day. 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) Domestic Violence: Neg ROS Constitutional: Reports: weakness Eyes: Reports: no symptoms reported ENT: Reports: no symptoms reported Respiratory: Reports: no symptoms reported Cardiovascular: Reports: no symptoms reported Gastrointestinal: Reports: no symptoms reported Genitourinary: Reports: no symptoms reported Male Genitalia: Reports: no symptoms reported Neurological: Reports: speech problem, right sided weakness, problems walking; Denies: right sided numbness Musculoskeletal: Reports: no symptoms reported Integumentary: Reports: no symptoms reported Allergic/Immunologic: Reports: no symptoms reported Hematologic/Lymphatic: Reports: no symptoms reported Endocrine: Reports: no symptoms reported Psychiatric: Reports: no symptoms reported Unable to obtain: altered mental status Exam Vitals: Vital Signs Date Time Temp Pulse Resp B/P (MAP) Pulse Ox O2 Delivery O2 Flow Rate FiO2 02/22/25 16:51 98.0 75 13 145/99 (114) 98 0 General: General: Well alert, well oriented, not confused, not agitated, not in acute distress, well cooperated during the physical. HEENT: Conjunctive are pink, sclerae clear, no icterus, pupil is equal in both sides, reactive to light, no ear discharge, no pharyngeal erythema or an edema. Neck: Supple, no JVD, no lymphadenopathy and thyromegaly. Chest: Equal air entry on both lungs, no added sounds, no wheeze. Cardiovascular: S1-S2 regular sinus rhythm and, regular rate, no gallops, no rubs, no murmurs Abdomen: No visible peristalsis, Bowel sounds present on auscultation, soft, nontender, no guarding, no rigidity Extremities: No obvious deformities, no pitting edema bilaterally, capillary refill intact, peripheral pulsations are intact on both sides Musculoskeletal: No joint swelling, deformities, inflammations, and no scoliosis and back tenderness Skin: Warm and dry. MENTAL STATUS: AAOx3 LANG/SPEECH: Slurring of speech, intact naming, repetition & comprehension CRANIAL NERVES: II: Pupils equal and reactive, no RAPD, normal visual field and fundus III, IV, : EOM intact, no gaze preference or deviation V: normal VII: Loss of nasolabial fold on the left side. Able to lift his eyebrows, close his eyes. VIII: normal hearing to speech MOTOR: 5/5 in both in left upper and lower extremity 3/5 in right upper, 2/5 in right lower. Proximal muscles affected greater than distal muscles. REFLEXES: 2/4 left upper and lower 1/4 in right upper and lower SENSORY: Loss of fine touch and proprioception in right upper and lower, crude touch preserved Sensory examination normal in left upper and lower. COORD: Normal finger to nose and heel to phan, no tremor, no dysmetria Gait could not be assessed. Diagnostic Data Last Recorded Lab Results: 02/22/25 1137 02/22/25 1137 Diagnostic Data: Laboratory Tests Test 02/22/25 11:37 Prothrombin Time 11.7 SECONDS (9.0-12.0) INR International Normalized Ratio 1.2 INR Activated Partial Thromboplast Time 28 SECONDS (22-32) Coagulation Comments Counseling Services Smoking & Tobacco Cessation: N/A Advance Care Planning Advanced Care plannin - 30 Minutes Additional Plan Assessment: This is a 59-year-old male with past medical history of ischemic stroke, CHF with reduced ejection fraction, hypertension who came to the ER in view of right sided weakness on waking up today. Acute CVA, most likely left MCA today NIHSS -9 -Vitals: Pulse rate in 70s, blood pressure 145/90 To maintain permissive hypertension. -CBC, coagulation profile, lipid panel normal -Chest x-ray shows mild cardiomegaly and prominence of the pulmonary vasculature -Head CT ruled out hemorrhagic stroke -Head and neck CTA shows No evidence of hemodynamically significant intracranial stenosis, proximal occlusion or aneurysm or cervical stenosis or dissection. Plan: Awaiting urinalysis, urine tox Awaiting MRI and bilateral carotid artery Doppler Neurology consulted , not a candidate for thrombectomy/thrombolysis. Patient given aspirin 325 mg p.o. once a atorvastatin 80 mg p.o. once in the ER, started on aspirin 81 mg p.o. daily and atorvastatin 40 mg p.o. daily Heart failure with reduced ejection fraction, not in exacerbation Hypertension Type 2 diabetes Awaiting hemoglobin A1c, Continue home medication empagliflozin 10 mg p.o. daily Patient on mild hyper/hypoglycemia protocol Hold medication losartan 50 mg p.o. daily, spironolactone 25 mg p.o. daily, metoprolol 25 mg p.o. daily to maintain permissive hypertension History of Homelessness History of substance use disorder Awaiting [facility] Substance use navigator and psych social worker consulted Code status: Full code DVT prophylaxis: Heparin 5000 unit q.8h Analgesia/sedation: Morphine/[place] Line/tube: PIV GI prophylaxis: None Nutrition: Heart healthy PT: Ordered. Prognosis: Guarded Disposition: Admit to U Chikis Bee MD PGY1, Internal Medicine [facility] Date of Service: Feb 22, 2025 Billing Provider: DELANO KENT MD Common Visit Codes: [id number] INP/OBS CARE (HIGH), [id number] INP/OBS CARE(HIGH) Secondary Visit Codes: [id number] CARE PLAN 30 MINUTES CHIKIS BEE, RES Feb 22, 2025 17:50 DELANO KENT MD Feb 23, 2025 21:03
[2025-02-22] MEDS: docusate sod 100mg capsule PO SCH (19:58)
[2025-02-22] MEDS: K and/or MAG REPLACEMENT MC SCH (19:58)
[2025-02-22] MEDS: heparin, porcine 5000 units/ml vial SQ SCH (20:00)
[2025-02-22 21:40] VITALS: BP 129/96; PULSE 73; RESP 13; TEMP 98.4; O2SAT 96
[2025-02-22 21:42] LABS: LEUKOCYTE ESTERASE ,URINE NEGATIVE (Neg); NITRITES, URINE NEGATIVE (Neg); OCCULT BLOOD,URINE NEGATIVE (Neg)
[2025-02-22 21:43] LABS: UA COLLECTION TYPE VOIDED
[2025-02-22 21:45] LABS: SQUAMOUS EPITHELIAL CELL,UR NONE SEEN /LPF (FEW)
[2025-02-22 21:48] LABS: URINE AMPHETAMINE SCREEN POSITIVE (Neg); URINE BARBITUATE SCREEN NEGATIVE (Neg); URINE BENZODIAZEPINES SCREEN NEGATIVE (Neg); URINE CANNABINOID SCREEN POSITIVE (Neg); URINE COCAINE SCREEN NEGATIVE (Neg); URINE METHADONE SCREEN NEGATIVE (Neg); URINE OPIATE SCREEN NEGATIVE (Neg); URINE PHENCYCLIDINE SCREEN NEGATIVE (Neg)
--- NOTE | 2025-02-22 23:21 | VASCULAR REPORT ---
Carotid Duplex Clinical History: Right-sided weakness Comparison: CT CTA NECK/HEAD on DOS: 02/22/25, CT CT STROKE ALERT on DOS: 02/22/25, MRI HEAD on DOS: 03/15/21 Technique: Duplex Doppler evaluation of the extracranial carotid and vertebral arteries including color Doppler and spectral/pulsed waveform analysis was performed. Findings: RIGHT SIDE: The peak systolic velocities are 72 cm/s in the CCA, 52 cm/s in the ICA. The ICA/CCA ratio is 0.72. The external carotid artery is patent with peak systolic velocity of 79 cm/s proximally. There is appropriate antegrade flow in the right vertebral artery. LEFT SIDE: The peak systolic velocities are 58 cm/s in the CCA, 61 cm/s in the ICA. The ICA/CCA ratio is 1.05. The external carotid artery is patent with peak systolic velocity of 78 cm/s proximally. There is appropriate antegrade flow in the left vertebral artery. Atherosclerotic vascular calcifications at the level of the carotid bulb and origin of the internal carotid artery. IMPRESSION: 1. No hemodynamically significant stenosis noted in the right carotid system. 2. No hemodynamically significant stenosis noted in the left carotid system. 3. Bilateral antegrade vertebral artery flow. Reference: Radiology 2003; 229:340-346 Normal ICA PSV is <125 cm/sec and no plaque or intimal thickening is visible sonographically additional criteria include ICA/CCA PSV ratio <2.0 and ICA EDV <40 cm/sec <50% ICA stenosis ICA PSV is <125 cm/sec and plaque or intimal thickening is visible sonographically additional criteria include ICA/CCA PSV ratio <2.0 and ICA EDV <40 cm/sec 50-69% ICA stenosis ICA PSV is 125-230 cm/sec and plaque is visible sonographically additional criteria include ICA/CCA PSV ratio of 2.0-4.0 and ICA EDV of 40-100 cm/sec 70% ICA stenosis but less than near occlusion ICA PSV is >230 cm/sec and visible plaque and luminal narrowing are seen at myers-scale and color Doppler ultrasound (the higher the Doppler parameters lie above the threshold of 230 cm/sec, the greater the likelihood of severe disease) additional criteria include ICA/CCA PSV ratio >4 and ICA EDV >100 cm/sec
[2025-02-22 23:50] VITALS: RESP 18; O2SAT 95
[2025-02-23 02:00] VITALS: BP 134/97; PULSE 70; RESP 12; TEMP 98.1; O2SAT 96
[2025-02-23 06:00] VITALS: BP 138/105; PULSE 83; RESP 16; TEMP 96.9; O2SAT 93
[2025-02-23 07:51] LABS: MEAN PLATELET VOLUME 8.8 FL (7.4-10.4); RED CELL DISTRIBUTION WIDTH 16.2 % (11.5-14.5)
[2025-02-23] MEDS: EMPAGLIFLOZIN 10 MG TABLET PO SCH (08:26)
[2025-02-23] MEDS: aspirin 81mg, enteric-coated 1 TAB TABLET.DR PO SCH (08:26)
[2025-02-23 08:33] LABS: CREATININE 1.59 MG/DL (0.60-1.10); TOTAL CARBON DIOXIDE 24.0 MMOL/L (24-32); eCRCL 57 ML/MIN; eGFR 45 ML/MIN
[2025-02-23 11:00] VITALS: BP 127/82; PULSE 84; RESP 18; TEMP 97.8; O2SAT 97
[2025-02-23 15:00] VITALS: BP 111/81; PULSE 80; RESP 24; TEMP 97; O2SAT 94
--- NOTE | 2025-02-23 18:57 | RADIOLOGY REPORT ---
EXAM: MR MRI HEAD INDICATION: Right-sided weakness TECHNIQUE: Multiplanar, multisequence imaging of the brain without contrast. COMPARISON: CT CTA NECK/HEAD on DOS: 02/22/25 FINDINGS: [PARENCHYMA]: Areas of diffusion restriction compatible with a infarction along the left posterior superior frontal gyrus, left parietal lobe, left occipital lobe involving multiple vascular territories. Imaging findings may be related to left-sided embolic phenomenon. No mass effect or herniation. No abnormal susceptibility weighted artifact. There are mild periventricular and centrum semiovale T2/FLAIR hyperintensities, which are nonspecific but most likely represent chronic microvascular ischemic change. [VENTRICLES]: No hydrocephalus. [EXTRA-AXIAL SPACES]: No extra-axial fluid collections. [FLOW VOIDS]: The flow voids are intact. [EXTRA-CRANIAL STRUCTURES]: The bony structures are intact. Visualized portions of the paranasal sinuses and mastoid air cells are essentially clear. IMPRESSION: 1. Acute infarcts involving the left posterior superior frontal gyrus, left parietal lobe and left occipital lobe involving multiple vascular territories. 2. Imaging findings may be related to left-sided embolic phenomenon. 3. Mild chronic microvascular ischemic change.
--- NOTE | 2025-02-23 20:12 | PROGRESS NOTE- Residence ---
Progress Note - Resident Providers to CC Resident Creating Document: RADHA BEE, ERIC ~ Central Line/PICC still needed: N\A Aguilar-Non Protocol Aguilar Indications Met/Not Met: F/C Indications Not Met Antibiotic Timeout Antibiotic Ordered?: No Subjective Patient was examined bedside. His weakness improved since yesterday. He is able to move and lift his right arm and leg. Slurring of speech still noticed. Patient passed swallow study, eating breakfast. Objective Vital Signs Date Time Temp Pulse Resp B/P (MAP) Pulse Ox O2 Delivery O2 Flow Rate FiO2 02/23/25 18:00 91 02/23/25 15:00 97.0 24 111/81 (91) 94 Room Air 02/23/25 08:00 0.0 Result Diagram: 02/23/2549 02/23/25648 General: Well alert, well oriented, not confused, not agitated, not in acute distress, well cooperated during the physical. HEENT: Conjunctive are pink, sclerae clear, no icterus, pupil is equal in both sides, reactive to light, no ear discharge, no pharyngeal erythema or an edema. Neck: Supple, no JVD, no lymphadenopathy and thyromegaly. Chest: Equal air entry on both lungs, no added sounds, no wheeze. Cardiovascular: S1-S2 regular sinus rhythm and, regular rate, no gallops, no rubs, no murmurs Abdomen: No visible peristalsis, Bowel sounds present on auscultation, soft, nontender, no guarding, no rigidity Extremities: No obvious deformities, no pitting edema bilaterally, capillary refill intact, peripheral pulsations are intact on both sides Central Nervous System: No focal neurological deficits, no motor or sensory weakness in all 4 extremities, could move all 4 extremities, 2+ deep tendon reflexes, negative Babinski. Musculoskeletal: No joint swelling, deformities, inflammations, and no scoliosis and back tenderness Skin: Warm and dry. MENTAL STATUS: AAOx3 LANG/SPEECH: Slurring of speech, intact naming, repetition & comprehension CRANIAL NERVES: II: Pupils equal and reactive, no RAPD, normal visual field and fundus III, IV, : EOM intact, no gaze preference or deviation V: normal VII: Loss of nasolabial fold on the left side. Able to lift his eyebrows, close his eyes. VIII: normal hearing to speech MOTOR: 5/5 in both in left upper and lower extremity 3/5 in right upper, 2/5 in right lower. Proximal muscles affected greater than distal muscles. REFLEXES: 2/4 left upper and lower 1/4 in right upper and lower SENSORY: Loss of fine touch and proprioception in right upper and lower, crude touch preserved Sensory examination normal in left upper and lower. COORD: Normal finger to nose and heel to phan, no tremor, no dysmetria Gait could not be assessed. Coagulation Studies Laboratory Tests Test 02/22/25 11:37 Prothrombin Time 11.7 SECONDS (9.0-12.0) INR International Normalized Ratio 1.2 INR Activated Partial Thromboplast Time 28 SECONDS (22-32) Coagulation Comments Counseling Services Smoking & Tobacco Cessation: > 10 Minutes Advance Care Planning Advanced Care plannin - 30 Minutes Assessment Assessment This is a 59-year-old male with past medical history of ischemic stroke, CHF with reduced ejection fraction, hypertension who came to the ER in view of right sided weakness on waking up today. MRI shows infarct in left frontal and parietal lesion. On dual antiplatelet therapy. Plan Plan Acute CVA, most likely left MCA today NIHSS -9 -Vitals: Pulse rate in 70s, blood pressure 145/90 To maintain permissive hypertension. -CBC, coagulation profile, lipid panel normal -Chest x-ray shows mild cardiomegaly and prominence of the pulmonary vasculature -Head CT ruled out hemorrhagic stroke -Head and neck CTA shows No evidence of hemodynamically significant intracranial stenosis, proximal occlusion or aneurysm or cervical stenosis or dissection. -MRI head shows Acute infarcts involving the left posterior superior frontal gyrus, left parietal lobe and left occipital lobe involving multiple vascular territories. -carotid artery ultrasound shows no stenosis Plan: Patient on dual antiplatelet therapy with aspirin 81 mg and clopidogrel 75 mg daily Neurology consulted , not a candidate for thrombectomy/thrombolysis. Patient given aspirin 325 mg p.o. once a atorvastatin 80 mg p.o. once in the ER, started on aspirin 81 mg p.o. daily and atorvastatin 40 mg p.o. daily Heart failure with reduced ejection fraction, not in exacerbation Hypertension Type 2 diabetes Awaiting hemoglobin A1c, Continue home medication empagliflozin 10 mg p.o. daily Patient on mild hyper/hypoglycemia protocol Hold medication losartan 50 mg p.o. daily, to maintain permissive hypertension Continue spironolactone 25 mg p.o. daily, metoprolol 25 mg p.o. daily History of Homelessness History of substance use disorder U tox positive for methamphetamine and cannabinoids Substance use navigator and oncology social work consulted Code status: Full code DVT prophylaxis: Heparin 5000 unit q.8h Analgesia/sedation: Morphine/[place] Line/tube: PIV GI prophylaxis: None Nutrition: Heart healthy PT: Ordered. Prognosis: Guarded Disposition: Admit to PCU Radha Bee MD PGY1, Internal Medicine [facility] Date of Service: Feb 23, 2025 Billing Provider: DELANO KENT MD Common Visit Codes: [id number] INP/OBS CARE(HIGH) RADHA BEE, RES Feb 23, 2025 20:11 DELANO KENT MD Feb 23, 2025 21:04
[2025-02-23 22:00] VITALS: BP_SYST 120; BP_DIAS 53; BP_DIAS 81; PULSE 59; PULSE 76; RESP 14; RESP 16; TEMP 97.2; TEMP 97.5; O2SAT 97; O2SAT 99
[2025-02-24 05:44] LABS: MEAN PLATELET VOLUME 8.6 FL (7.4-10.4); RED CELL DISTRIBUTION WIDTH 16.0 % (11.5-14.5)
[2025-02-24 06:00] VITALS: BP 135/96; PULSE 86; RESP 22; TEMP 97.4; O2SAT 94
[2025-02-24 06:02] LABS: CREATININE 1.60 MG/DL (0.60-1.10); TOTAL CARBON DIOXIDE 23.7 MMOL/L (24-32); eCRCL 57 ML/MIN; eGFR 44 ML/MIN
[2025-02-24] MEDS ORDERED: metoprolol succinate 25mg (24-HOUR) SR. Tablet PO SCH (08:00)
--- NOTE | 2025-02-24 13:25 | [facility] CONSULT REPORT ---
[facility] Procedure Note [facility] Procedure Note Consult [facility] Note # Demographics Consult Type: Follow-Up Phone Call Patient Location: Inpatient First Name: Bolivar Last Name: Terrie Date of : 1965 Age: 59 Gender: Male Facility: [facility] Time of Initial Page (): 02/24/2025 10:01 First Contact with Site (): 02/24/2025 10:01 # HPI History: 59 yo M PMH HTN, CHF EF 20-25%, homelessness, stroke 2-3 years ago on ASA, meth abuse 2-3x/month (notes last was 3 weeks) p/w R sided weakness, MRI brain acute infarcts L post sup frontal, LP, LO. Weakness improved, now can walk on his own. L droop DAPT was started Echo bubble pending CTA no stenosis CT bleed US carotids no stenosis Nurse will arrange for camera # Scores Time of exam and NIHSS (): 02/24/2025 12:10 Level of Consciousness 1a: [0] = Alert; keenly responsive LOC Questions 1b: [0] = Answers both questions correctly LOC Commands 1c: [0] = Performs both tasks correctly Best Gaze 2: [0] = Normal Visual 3: [0] = No visual loss Facial Palsy 4: [0] = Normal symmetrical movements Motor Arm Left 5a: [0] = No drift Motor Arm Right 5b: [0] = No drift Motor Leg Left 6a: [0] = No drift Motor Leg Right 6b: [0] = No drift Limb Ataxia 7: [0] = Absent Sensory 8: [0] = Normal Best Language 9: [0] = No aphasia Dysarthria 10: [0] = Normal Extinction and Inattention 11: [0] = No abnormality NIHSS Total: 0 # Data Head CT: - no bleed - per radiologist read CTA Head: - no large vessel occlusion - per radiologist read CTA Neck: - patent vessels - per radiologist read MRI: - acute ischemia - per radiologist read MRI brain acute infarcts L post sup frontal, LP, LO. # Assessment Impression: - Ischemic Stroke (Acute) Need shell sorter and help to stop meth abuse. # Plan Thrombolytic/Intervention: NOT IV Thrombolysis or IA Intervention candidate Thrombolytic Exclusion: > 4.5 hours Intraarterial Exclusion: - no large vessel occlusion (LVO) Target Blood Pressure: - SBP < 220 - DBP < 120 Labs: - hemoglobin A1c - lipid panel Diagnostic Test: - echo with bubble study pending Therapy/Evaluation: - speech/swallow consultation - NPO until swallow evaluation - PT/OT evaluation Medication: - aspirin 81 mg PLUS clopidogrel (Plavix) 75 mg for 21 days, then monotherapy therafter - start statin with goal of LDL < 70 Other: - If patient has any neurological deterioration please call me back immediately - will need event monitor or loop recorder as outpatient if atrial fibrillation not found as inpatient - I have discussed my recommendations with the referring provider - permissive hypertension Additional Recommendations: social services manager for meth # Logistics Attestation of consult completion: The patient is located at: [facility]. Facility staff participated in the visit. I performed this tele medicine visit from my offsite office utilizing interactive 2 way audio and visual telecommunication technology at the request of the onsite inpatient provider. Total time spent in telemedicine encounter: I spent 25 minutes reviewing clinical data and/or imaging, obtaining history, examining the patient, communicating with the onsite care team, and in preparation of this report. # Demographics First Name: Bolivar Last Name: Terrie Facility: [facility] Electronically signed at 02/24/2025 13:23 ([place] Time) by Jeremy Godwin MD Neuro Consult Order placed for: Yes JEREMY GODWIN MD Feb 24, 2025 13:25
[2025-02-24 18:00] VITALS: BP 136/97; PULSE 83; RESP 20; TEMP 97.8; O2SAT 96
--- NOTE | 2025-02-24 18:36 | CARDIOLOGY REPORT ---
APPROVED REPORT EXAM: Limited 2D Echocardiogram with saline. Patient Location: 402 Heart Rate: 83 bpm Rhythm: SINUS Indications CEREBRALVASCULAR ACCIDENT EVALUATE PFO ONLY Market Relationship Manager: NONE Previous echo: 02/01/25 [facility] EF: 3025-%; mLVE; sevDECR FX; sevRVE-nlFX; PA61; nlAV - Reyna; nlMV-mMR; modTR; dilAO RT 2D Dimensions LVDd 6.1 cm LA Minor 4.9 cm RA Minor 4.6 cm LEFT VENTRICLE Increased LV size with grossly normal wall thickness. Overall systolic function is severely decreased. LVEF is 25-30%. Best systolic function at LV base. RIGHT VENTRICLE RV is moderately increased in size with normal function. ATRIA Left atrium is moderately dilated. Right atrium is moderately dilated. Saline study was performed with 2 IV injections of 10 ccs of agitated normal saline at rest, with cough, and with valsalva. Negative saline study for right to left flow. AORTIC VALVE Valve not evaluated due to focused exam. See 02/01/25 exam. MITRAL VALVE Mild MV annular calcification without stenosis. Trace regurgitation. Valve not evaluated due to focused exam. TRICUSPID VALVE TV appears structurally normal with moderate regurgitation. Conclusion Increased LV size with grossly normal wall thickness. Overall systolic function is severely decreased. LVEF is 25-30%. Best systolic function at LV base. RV is moderately increased in size with normal function. Left atrium is moderately dilated. Right atrium is moderately dilated. Saline study was performed with 2 IV injections of 10 ccs of agitated normal saline at rest, with cough, and with valsalva. Negative saline study for right to left flow. Aortic valve not evaluated due to focused exam. See 02/01/25 exam. Mild MV annular calcification without stenosis. Trace regurgitation. Valve not evaluated due to focused exam. TV appears structurally normal with moderate regurgitation.
--- NOTE | 2025-02-24 19:52 | PROGRESS NOTE- Residence ---
Progress Note - Resident Providers to CC Resident Creating Document: RADHA BEE, ERIC ~ Central Line/PICC still needed: N\A Aguilar-Non Protocol Aguilar Indications Met/Not Met: F/C Indications Not Met Antibiotic Timeout Antibiotic Ordered?: No Subjective Patient was examined bedside. His weakness improved since yesterday. He is able to walk to the bathroom without assistance. Speech better today, no slurring. Patient passed swallow study, eating breakfast. Objective Vital Signs Date Time Temp Pulse Resp B/P (MAP) Pulse Ox O2 Delivery O2 Flow Rate FiO2 02/24/25 18:30 86 02/24/25 08:00 Room Air 0.0 02/24/25 06:00 97.4 22 135/96 (109) 94 Result Diagram: 02/24/2545702/24/25457 General: Well alert, well oriented, not confused, not agitated, not in acute distress, well cooperated during the physical. HEENT: Conjunctive are pink, sclerae clear, no icterus, pupil is equal in both sides, reactive to light, no ear discharge, no pharyngeal erythema or an edema. Neck: Supple, no JVD, no lymphadenopathy and thyromegaly. Chest: Equal air entry on both lungs, no added sounds, no wheeze. Cardiovascular: S1-S2 regular sinus rhythm and, regular rate, no gallops, no rubs, no murmurs Abdomen: No visible peristalsis, Bowel sounds present on auscultation, soft, nontender, no guarding, no rigidity Extremities: No obvious deformities, no pitting edema bilaterally, capillary refill intact, peripheral pulsations are intact on both sides Central Nervous System: No focal neurological deficits, no motor or sensory weakness in all 4 extremities, could move all 4 extremities, 2+ deep tendon reflexes, negative Babinski. Musculoskeletal: No joint swelling, deformities, inflammations, and no scoliosis and back tenderness Skin: Warm and dry. MENTAL STATUS: AAOx3 LANG/SPEECH: Slurring of speech, intact naming, repetition & comprehension CRANIAL NERVES: II: Pupils equal and reactive, no RAPD, normal visual field and fundus III, IV, : EOM intact, no gaze preference or deviation V: normal VII: Loss of nasolabial fold on the left side. Able to lift his eyebrows, close his eyes. VIII: normal hearing to speech MOTOR: 5/5 in both in left upper and lower extremity 3/5 in right upper, 2/5 in right lower. Proximal muscles affected greater than distal muscles. REFLEXES: 2/4 left upper and lower 1/4 in right upper and lower SENSORY: Loss of fine touch and proprioception in right upper and lower, crude touch preserved Sensory examination normal in left upper and lower. COORD: Normal finger to nose and heel to phan, no tremor, no dysmetria Gait could not be assessed. Coagulation Studies Laboratory Tests Test 02/22/25 11:37 Prothrombin Time 11.7 SECONDS (9.0-12.0) INR International Normalized Ratio 1.2 INR Activated Partial Thromboplast Time 28 SECONDS (22-32) Coagulation Comments Assessment Assessment This is a 59-year-old male with past medical history of ischemic stroke, CHF with reduced ejection fraction, hypertension who came to the ER in view of right sided weakness on waking up today. MRI shows infarct in left frontal and parietal lesion. On dual antiplatelet therapy. Plan Plan Acute CVA, most likely left MCA today NIHSS -9 -Vitals: Pulse rate in 70s, blood pressure 145/90 To maintain permissive hypertension. -CBC, coagulation profile, lipid panel normal -Chest x-ray shows mild cardiomegaly and prominence of the pulmonary vasculature -Head CT ruled out hemorrhagic stroke -Head and neck CTA shows No evidence of hemodynamically significant intracranial stenosis, proximal occlusion or aneurysm or cervical stenosis or dissection. -MRI head shows Acute infarcts involving the left posterior superior frontal gyrus, left parietal lobe and left occipital lobe involving multiple vascular territories. -carotid artery ultrasound shows no stenosis -echocardiogram with bubble study shows no change from his echocardiography done 1 month ago. Ejection fraction 25-30%. No clots. Plan: Patient on dual antiplatelet therapy with aspirin 81 mg and clopidogrel 75 mg daily Neurology consulted , not a candidate for thrombectomy/thrombolysis. Patient given aspirin 325 mg p.o. once a atorvastatin 80 mg p.o. once in the ER, started on aspirin 81 mg p.o. daily and atorvastatin 40 mg p.o. daily -advised outpatient cardiology consult for possible Holter monitoring Heart failure with reduced ejection fraction, not in exacerbation Hypertension Type 2 diabetes Awaiting hemoglobin A1c, Continue home medication empagliflozin 10 mg p.o. daily Patient on mild hyper/hypoglycemia protocol Hold medication losartan 50 mg p.o. daily, to maintain permissive hypertension Continue spironolactone 25 mg p.o. daily, metoprolol 25 mg p.o. daily 02/24/2025: Patient has NT proBNP level of 8000, currently not started Lasix due to blood pressure. Patient maintain saturation on room air, does not seem to be in acute distress. History of Homelessness History of substance use disorder U tox positive for methamphetamine and cannabinoids Substance use navigator and social insurance analyst consulted Code status: Full code DVT prophylaxis: Heparin 5000 unit q.8h Analgesia/sedation: Morphine/[place]/tube: PIV GI prophylaxis: None Nutrition: Heart healthy PT: Ordered. Prognosis: Guarded Disposition: Admit to PCU Radha Bee MD PGY1, Internal Medicine [facility] Date of Service: Feb 24, 2025 Billing Provider: DELANO KENT MD Common Visit Codes: [id number] INP/OBS CARE(HIGH) RADHA BEE, RES Feb 24, 2025 19:52 DELANO KENT MD Feb 24, 2025 22:06
[2025-02-24 22:00] VITALS: BP 118/77; PULSE 81; RESP 16; TEMP 97.5; O2SAT 96
[2025-02-25] VITALS (7 sets, daily range): BP systolic 120–144; BP diastolic 87–109; PULSE 84–90; RESP 15–22; TEMP 97.8–98.4; O2SAT 95–97
[2025-02-25 06:09] LABS: MEAN PLATELET VOLUME 8.7 FL (7.4-10.4); RED CELL DISTRIBUTION WIDTH 16.0 % (11.5-14.5)
[2025-02-25 06:29] LABS: CREATININE 1.58 MG/DL (0.60-1.10); TOTAL CARBON DIOXIDE 24.2 MMOL/L (24-32); eCRCL 58 ML/MIN; eGFR 45 ML/MIN
[2025-02-25] MEDS ORDERED: CLOP75TA34 PO (11:21)
[2025-02-25] MEDS ORDERED: LOSA50TA64 PO (11:21)
[2025-02-25] MEDS ORDERED: METO-395 PO (11:21)
[2025-02-25] MEDS ORDERED: ATOR20TA66 PO (11:21)
--- NOTE | 2025-02-25 16:08 | DISCHARGE SUMMARY-Residence ---
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 Past history of ischemic stroke Hypotension Newly diagnosed hospital with reduced ejection fraction of 25-30% Type 2 diabetes Methamphetamine use disorder History of Homelessness Operations\Procedures: None Consultants: Neurology, Jeremy Godwin Complications: None Condition on DC: Stable New Medications: Losartan Potassium (Losartan Potassium) 50 Mg Tablet 25 MG PO HS for 30 Days, #30 TAB Metoprolol Succinate (Metoprolol Succinate) 25 Mg Tab.sr.24h 0.5 TAB PO DAILY for 30 Days, #30 TAB 0 Refills Atorvastatin Calcium (Atorvastatin Calcium) 20 Mg Tablet 40 MG PO DAILY for 30 Days, #30 TAB Clopidogrel Bisulfate (Clopidogrel) 75 Mg Tablet 75 MG PO DAILY for 21 Days, #21 TAB Do not stop medication unless instructed by prescriber. Continued Medications: Aspirin (Ecotrin*) 81 Mg Tablet.dr 1 TAB PO DAILY for 30 Days, #30 TAB.SR Empagliflozin (Jardiance) 10 Mg Tablet 10 MG PO DAILY for 30 Days, #30 TAB Furosemide (Lasix) 20 Mg Tablet 20 MG PO DAILY for 30 Days, #30 TAB Home Med List (No Home Medications) Each Spironolactone (Aldactone) 25 Mg Tablet 12.5 MG PO DAILY@0830 for 30 Days, #30 TAB Discontinued Medications: Losartan Potassium (Losartan Potassium) 50 Mg Tablet 25 MG PO DAILY for 30 Days, #30 TAB Metoprolol Succinate (Metoprolol Succinate) 25 Mg Tab.sr.24h 25 MG PO DAILY for 30 Days, #30 TAB.SR Discharge Summary: History of present illness: This is a 59-year-old male with past medical history of CVA, hypertension, heart failure with reduced ejection fraction of 35-40%, type 2 diabetes who came to the ER due to right-sided weakness on waking up. According to the patient, he had weakness in his right arm and leg on waking up such that he could not lift his arm overhead, not grasp objects. He was not able to move his right leg at all, found it very difficult to roll around in bed, difficulty standing up. He also noticed slurring of his speech, drooping of the left side of the face. The symptoms of confusion, disorientation, agitation, LOC, seizure-like activity. No bowel or bladder symptoms. No difficulty in hearing/eyesight. No symptoms of headache, palpitation, chest pain, leg swelling leading up to his symptoms. He takes his medications regularly. He admits to using meth occasionally. He has a history of severe 2-3 years ago during which time he had weakness in his right hand and right leg, but was less severe with very little residual weakness. He occasionally uses cane, but walks without assistance most of the time. Hospital course: Admission patient was administered dual antiplatelet therapy with clopidogrel and aspirin after ruling out hemorrhagic stroke with CT head. We held his blood pressure medication losartan, metoprolol to maintain permissive hypertension. Even then, his systolic blood pressure was in 130s. 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 His lipid levels were in the normal range. Other stroke workup was negative. Physical therapy recommended a walker. His symptoms improved during the course of hospitalization. He is symptomatically better and hemodynamically stable and hence being discharged with the following instructions. Vital Signs Date Time Temp Pulse Resp B/P (MAP) Pulse Ox O2 Delivery O2 Flow Rate FiO2 02/25/25 14:26 120/90 (100) 02/25/25 10:00 98.0 90 22 95 Room Air 02/24/25 08:00 0.0 Laboratory Tests Test 02/23/25 20:45 02/24/25 04:58 02/25/25 05:02 Pro-B-Type Natriuretic Peptide 8118 PG/ML White Blood Count 5.9 X10'3 6.3 X10'3 Red Blood Count 4.31 X10'6 4.71 X10'6 Hemoglobin 12.5 g/dl 13.6 g/dl Hematocrit 36.7 % 39.6 % Mean Corpuscular Volume 85.1 FL 84.2 FL Mean Corpuscular Hemoglobin 28.9 PG 28.9 PG Mean Corpuscular Hemoglobin Concent 34.0 g/dL 34.3 g/dL Red Cell Distribution Width 16.0 % 16.0 % Platelet Count 143 X10'3 150 X10'3 Mean Platelet Volume 8.6 FL 8.7 FL Neutrophils (%) (Auto) 77.1 % 78.3 % Lymphocytes (%) (Auto) 15.8 % 12.5 % Monocytes (%) (Auto) 5.2 % 7.0 % Eosinophils (%) (Auto) 1.5 % 1.8 % Basophils (%) (Auto) 0.4 % 0.4 % Neutrophils # (Auto) 4.6 X10'3 4.9 X10'3 Lymphocytes # (Auto) 0.9 X10'3 0.8 X10'3 Monocytes # (Auto) 0.3 X10'3 0.4 X10'3 Eosinophils # (Auto) 0.1 X10'3 0.1 X10'3 Basophils # (Auto) 0.0 X10'3 0.0 X10'3 CBC Comment Sodium Level 140 MMOL/L 141 MMOL/L Potassium Level 3.8 MMOL/L 4.0 MMOL/L Chloride Level 108 MMOL/L 107 MMOL/L Carbon Dioxide Level 23.7 MMOL/L 24.2 MMOL/L Anion Gap 8 10 Blood Urea Nitrogen 29 MG/DL 26 MG/DL Creatinine 1.60 MG/DL 1.58 MG/DL Estimated GFR/1.73 m2 44 ML/MIN 45 ML/MIN BUN/Creatinine Ratio 18.1 16.5 Glucose Level 104 MG/DL 92 MG/DL Calcium Level 8.5 MG/DL 8.7 MG/DL Magnesium Level 1.7 MG/DL 2.0 MG/DL Total Bilirubin 1.1 MG/DL 1.3 MG/DL Aspartate Amino Transf (AST/SGOT) 16 U/L 17 U/L Alanine Aminotransferase (ALT/SGPT) 16 U/L 17 U/L Alkaline Phosphatase 81 IU/L 86 IU/L Total Protein 6.4 G/DL 6.7 G/DL Albumin 3.0 G/DL 3.1 G/DL Globulin 3.4 G/DL 3.6 G/DL Albumin/Globulin Ratio 0.9 0.9 Chemistry Comments Hemoglobin A1c 6.1 % Imaging: Carotid artery ultrasound: 1. No hemodynamically significant stenosis noted in the right carotid system. 2. No hemodynamically significant stenosis noted in the left carotid system. 3. Bilateral antegrade vertebral artery flow. Chest x-ray: 1. Borderline mild cardiomegaly and prominence of the pulmonary vas culature may be seen with pulmonary vascular congestion in the appropriate clinical setting. 2. Mild atelectasis in the lung bases. No focal consolidation. Head CT: No evidence of acute intracranial abnormality. Head and neck CTA: 1. No evidence of hemodynamically significant intracranial stenosis, proximal occlusion or aneurysm. 2. No evidence of hemodynamically significant cervical stenosis or dissection. 3. Partially visualized bilateral pleural effusions. Head MRI: 1. Acute infarcts involving the left posterior superior frontal gyrus, left parietal lobe and left occipital lobe involving multiple vascular territories. 2. Imaging findings may be related to left-sided embolic phenomenon. 3. Mild chronic microvascular ischemic change. Echo with bubble study: Increased LV size with grossly normal wall thickness. Overall systolic function is severely decreased. LVEF is 25-30%. Best systolic function at LV base. RV is moderately increased in size with normal function. Left atrium is moderately dilated. Right atrium is moderately dilated. Saline study was performed with 2 IV injections of 10 ccs of agitated normal saline at rest, with cough, and with valsalva. Negative saline study for right to left flow. Aortic valve not evaluated due to focused exam. See 02/01/25 exam. Mild MV annular calcification without stenosis. Trace regurgitation. Valve not evaluated due to focused exam. TV appears structurally normal with moderate regurgitation. Physical examination on discharge: General: Well alert, well oriented, not confused, not agitated, not in acute distress, well cooperated during the physical. HEENT: Conjunctive are pink, sclerae clear, no icterus, pupil is equal in both sides, reactive to light, no ear discharge, no pharyngeal erythema or an edema. Neck: Supple, no JVD, no lymphadenopathy and thyromegaly. Chest: Equal air entry on both lungs, no added sounds, no wheeze. Cardiovascular: S1-S2 regular sinus rhythm and, regular rate, no gallops, no rubs, no murmurs Abdomen: No visible peristalsis, Bowel sounds present on auscultation, soft, nontender, no guarding, no rigidity Extremities: No obvious deformities, no pitting edema bilaterally, capillary refill intact, peripheral pulsations are intact on both sides Musculoskeletal: No joint swelling, deformities, inflammations, and no scoliosis and back tenderness Skin: Warm and dry. MENTAL STATUS: AAOx3 LANG/SPEECH: Slurring of speech, intact naming, repetition & comprehension CRANIAL NERVES: II: Pupils equal and reactive, no RAPD, normal visual field and fundus III, IV, : EOM intact, no gaze preference or deviation V: normal VII: Loss of nasolabial fold on the left side. Able to lift his eyebrows, close his eyes. VIII: normal hearing to speech MOTOR: 5/5 in both in left upper and lower extremity 4/5 in right upper, 4/5 in right lower. Proximal muscles affected greater than distal muscles. REFLEXES: 2/4 left upper and lower 2/4 in right upper and lower SENSORY: Loss of fine touch and proprioception in right upper and lower, crude touch preserved Sensory examination normal in left upper and lower. COORD: Normal finger to nose and heel to phan, no tremor, no dysmetria Gait could not be assessed. Discharge instructions: Take medication clopidogrel 75 mg p.o. daily for 21 days Your medication losartan dosage has been reduced to 25 mg p.o. HS Metoprolol succinate dosage has been reduced to 12.5 mg p.o. HS Continue home medications atorvastatin 40 mg p.o. daily Aspirin 81 mg p.o. daily Jardiance 10 mg p.o. daily Furosemide 20 mg p.o. daily Follow-up with your primary care provider and neurologist in 1-2 weeks Use walker to move around as recommended by Physical therapy Visit ER immediately in case of any acute symptoms including weakness, headache, seizures, syncope. *Problems/Diagnosis: (1) CVA (cerebral vascular accident) Status: Acute (2) Methamphetamine use Status: Acute (3) New onset of congestive heart failure Status: Acute (4) Homelessness Status: Chronic (5) Type 2 diabetes mellitus Status: Chronic (6) Hypertension Status: Chronic (7) Heart failure with reduced ejection fraction Status: Chronic Total Time Spent on D/C: > 30 Minutes Counseling Services Smoking & Tobacco Cessation: N/A Date of Service: Feb 25, 2025 Billing Provider: DELANO KENT MD Common Visit Codes: 06008-NXA/[id number] DISCH DAY >30min CHIKIS BEE, RES Feb 25, 2025 15:12 DELANO KENT MD Feb 26, 2025 06:02
[2025-02-26 05:58] LABS: MEAN PLATELET VOLUME 8.5 FL (7.4-10.4); RED CELL DISTRIBUTION WIDTH 15.8 % (11.5-14.5)
[2025-02-26 06:00] VITALS: BP 143/104; PULSE 84; RESP 16; TEMP 97.9; O2SAT 99
[2025-02-26 06:21] LABS: CREATININE 1.60 MG/DL (0.60-1.10); TOTAL CARBON DIOXIDE 24.7 MMOL/L (24-32); eCRCL 57 ML/MIN; eGFR 44 ML/MIN
[2025-02-26 07:23] VITALS: BP_SYST 143; PULSE 84
--- NOTE | 2025-02-27 17:05 | PROGRESS NOTE- Residence ---
Progress Note - Resident Providers to CC Resident Creating Document: RADHA BEE, ERIC ~ Central Line/PICC still needed: N\A Aguilar-Non Protocol Aguilar Indications Met/Not Met: F/C Indications Not Met Antibiotic Timeout Antibiotic Ordered?: No Subjective Patient was examined bedside. His weakness improved since yesterday. He is able to walk to the bathroom without assistance. Speech better today, no slurring. Patient passed swallow study, eating breakfast. Objective Vital Signs Date Time Temp Pulse Resp B/P (MAP) Pulse Ox O2 Delivery O2 Flow Rate FiO2 02/26/25 07:23 84 02/26/25 06:00 97.9 16 143/104 (117) 99 Room Air 02/24/25 08:00 0.0 Result Diagram: 02/26/259 02/26/25458 General: Well alert, well oriented, not confused, not agitated, not in acute distress, well cooperated during the physical. HEENT: Conjunctive are pink, sclerae clear, no icterus, pupil is equal in both sides, reactive to light, no ear discharge, no pharyngeal erythema or an edema. Neck: Supple, no JVD, no lymphadenopathy and thyromegaly. Chest: Equal air entry on both lungs, no added sounds, no wheeze. Cardiovascular: S1-S2 regular sinus rhythm and, regular rate, no gallops, no rubs, no murmurs Abdomen: No visible peristalsis, Bowel sounds present on auscultation, soft, nontender, no guarding, no rigidity Extremities: No obvious deformities, no pitting edema bilaterally, capillary refill intact, peripheral pulsations are intact on both sides Central Nervous System: No focal neurological deficits, no motor or sensory weakness in all 4 extremities, could move all 4 extremities, 2+ deep tendon reflexes, negative Babinski. Musculoskeletal: No joint swelling, deformities, inflammations, and no scoliosis and back tenderness Skin: Warm and dry. MENTAL STATUS: AAOx3 LANG/SPEECH: Slurring of speech, intact naming, repetition & comprehension CRANIAL NERVES: II: Pupils equal and reactive, no RAPD, normal visual field and fundus III, IV, : EOM intact, no gaze preference or deviation V: normal VII: Loss of nasolabial fold on the left side. Able to lift his eyebrows, close his eyes. VIII: normal hearing to speech MOTOR: 5/5 in both in left upper and lower extremity 3/5 in right upper, 2/5 in right lower. Proximal muscles affected greater than distal muscles. REFLEXES: 2/4 left upper and lower 1/4 in right upper and lower SENSORY: Loss of fine touch and proprioception in right upper and lower, crude touch preserved Sensory examination normal in left upper and lower. COORD: Normal finger to nose and heel to phan, no tremor, no dysmetria Gait could not be assessed. Coagulation Studies Laboratory Tests Test 02/22/25 11:37 Prothrombin Time 11.7 SECONDS (9.0-12.0) INR International Normalized Ratio 1.2 INR Activated Partial Thromboplast Time 28 SECONDS (22-32) Coagulation Comments Assessment Assessment This is a 59-year-old male with past medical history of ischemic stroke, CHF with reduced ejection fraction, hypertension who came to the ER in view of right sided weakness on waking up today. MRI shows infarct in left frontal and parietal lesion. On dual antiplatelet therapy. Plan Plan Acute CVA, most likely left MCA today NIHSS -9 -Vitals: Pulse rate in 70s, blood pressure 145/90 To maintain permissive hypertension. -CBC, coagulation profile, lipid panel normal -Chest x-ray shows mild cardiomegaly and prominence of the pulmonary vasculature -Head CT ruled out hemorrhagic stroke -Head and neck CTA shows No evidence of hemodynamically significant intracranial stenosis, proximal occlusion or aneurysm or cervical stenosis or dissection. -MRI head shows Acute infarcts involving the left posterior superior frontal gyrus, left parietal lobe and left occipital lobe involving multiple vascular territories. -carotid artery ultrasound shows no stenosis -echocardiogram with bubble study shows no change from his echocardiography done 1 month ago. Ejection fraction 25-30%. No clots. Plan: Patient on dual antiplatelet therapy with aspirin 81 mg and clopidogrel 75 mg daily Neurology consulted , not a candidate for thrombectomy/thrombolysis. Patient given aspirin 325 mg p.o. once a atorvastatin 80 mg p.o. once in the ER, started on aspirin 81 mg p.o. daily and atorvastatin 40 mg p.o. daily -advised outpatient cardiology consult for possible Holter monitoring Heart failure with reduced ejection fraction, not in exacerbation Hypertension Type 2 diabetes Awaiting hemoglobin A1c, Continue home medication empagliflozin 10 mg p.o. daily Patient on mild hyper/hypoglycemia protocol Hold medication losartan 50 mg p.o. daily, to maintain permissive hypertension Continue spironolactone 25 mg p.o. daily, metoprolol 25 mg p.o. daily 02/24/2025: Patient has NT proBNP level of 8000, currently not started Lasix due to blood pressure. Patient maintain saturation on room air, does not seem to be in acute distress. History of Homelessness History of substance use disorder U tox positive for methamphetamine and cannabinoids Substance use navigator and social worker consulted Code status: Full code DVT prophylaxis: Heparin 5000 unit q.8h Analgesia/sedation: Morphine/[place]/tube: PIV GI prophylaxis: None Nutrition: Heart healthy PT: Ordered. Prognosis: Guarded Disposition: Monitor in neuro Radha Bee MD PGY1, Internal Medicine [facility] Date of Service: Feb 26, 2025 Billing Provider: DELANO KENT MD Common Visit Codes: [id number] INP/OBS CARE(HIGH) RADHA BEE, RES Feb 27, 2025 17:05 DELANO KENT MD Feb 28, 2025 07:24
== END 2025-02-26 09:10 | disposition home or self-care (01) | DRG 45 ==
LOC: ER 11:18 → ED HOLD 12:26 → PCU 3S 22:12 → ORTHO 4S 02-24 00:43
PROVIDERS: ADMIT Internal Medicine; ATTEND Internal Medicine
PROC: B3251ZZ Computerized Tomography (CT Scan) of Bilateral Common Carotid Arteries using Low Osmolar Contrast (ICD-10-PCS; principal; 2025-02-22)
PROC: B32G1ZZ Computerized Tomography (CT Scan) of Bilateral Vertebral Arteries using Low Osmolar Contrast (ICD-10-PCS; 2025-02-22)
PROC: B32R1ZZ Computerized Tomography (CT Scan) of Intracranial Arteries using Low Osmolar Contrast (ICD-10-PCS; 2025-02-22)
PROC: B3281ZZ Computerized Tomography (CT Scan) of Bilateral Internal Carotid Arteries using Low Osmolar Contrast (ICD-10-PCS; 2025-02-22)
DX: I63.9 Cerebral infarction, unspecified (principal); G81.91 Hemiplegia, unspecified affecting right dominant side; I11.0 Hypertensive heart disease with heart failure; I50.22 Chronic systolic (congestive) heart failure; E11.9 Type 2 diabetes mellitus without complications; R29.709 NIHSS score 9; Z79.82 Long term (current) use of aspirin; Z79.899 Other long term (current) drug therapy
CPT/HCPCS: 36415; 71045; 80048; 80053; 80061; 80305; 81001; 82948; 83036; 83735; 83880; 85025; 85610; 85730; 87081; 93005; 93308; 93880; 97110; 97116; 97162; 99291; G0378; J1644; Q9967

== ENCOUNTER 2025-04-30 01:00 | Inpatient (IN) | payer MEDICAID ==
[~2025-04-30] VITALS: Ht 190.5 cm; Wt 84.9 kg
[~2025-04-30 01:00] MED LIST changes: +ATOR20TA66 PO; +CLOP75TA34 PO
--- NOTE | 2025-04-30 01:13 | Physician Documentation ---
History of Present Illness ~ Stated Complaint: SOB Time Seen by MD: 01:12 Primary Medical Doctor: [facility] 59-year-old male with a history of CHF and methamphetamine use presenting with shortness of breath He tells me that over the past week and especially of the past couple of days he has had increased shortness of breath. He tells me that it is constant, but much worse with exertion, he can barely walk even a short distance anymore. He also has increased leg swelling. He reports a cough with some yellow or green sputum. He reports general fatigue and malaise. Decreased appetite. No fevers. No chest pain. No vomiting or diarrhea. He tells me that he only takes his Lasix about half the time. He does use methamphetamines. Medication Reconciliation Allergies: Coded Allergies: No Known Allergies (Unverified , 04/30/25) Scheduled Aspirin (Ecotrin*), 1 TAB PO DAILY Atorvastatin Calcium (Atorvastatin Calcium), 40 MG PO DAILY Clopidogrel Bisulfate (Clopidogrel), 75 MG PO DAILY Empagliflozin (Jardiance), 10 MG PO DAILY Furosemide (Lasix), 20 MG PO DAILY Losartan Potassium (Losartan Potassium), 25 MG PO HS Metoprolol Succinate (Metoprolol Succinate), 0.5 TAB PO DAILY Spironolactone (Aldactone), 12.5 MG PO DAILY@0830 Miscellaneous Medications Home Med List (No Home Medications), (Reported) Past Medical History Past Medical History: CVA/TIA/Stroke, Hypertension, Diabetes Past Surgical History: noncontributory Patient History: Patient reports no known family medical history. Alcohol Use: Occasionally Drug Use: marijuana, methamphetamine Lives with: Alone Lives In: Homeless Occupation: retired Review of Systems Constitutional: Denies: fever Respiratory: Reports: shortness of breath, SOB with exertion Cardiovascular: Denies: chest pain Gastrointestinal: Denies: abdominal pain Physical Exam Physical Exam General: This is a pleasant but tired appearing middle-aged man HEENT: Atraumatic, oropharynx is dry Heart: Regular rate and rhythm, normal-appearing peripheral perfusion, no loud murmur Lungs: Diminished breath sounds bilateral, crackles bilateral lung bases, increased work of breathing with minimal exertion, mild hypoxia on room air Abdomen: Soft, nondistended Extremities: Warm and well-perfused, pitting edema to both calves Neuro: Alert and oriented Psychiatric: Tired but is cooperative with exam Progress Results/Orders Results/Orders Orders - NELSON ROBLES MD Chest,Single View (04/30/25 01:21) Monitor (04/30/25 01:07) Saline Lock (04/30/25 01:07) Oxygen (04/30/25 01:07) Hs Troponin I W Calculations (04/30/25 03:07) Hs Troponin I W Calculations (04/30/25 04:07) General Nursing Order (04/30/25 ) Page Hospitalist (04/30/25 02:13) Completed Orders - NELSON ROBLES MD Chest,Single View (04/30/25 01:21) Cbc/Diff (04/30/25 01:07) BMP (04/30/25 01:07) PBNP (04/30/25 01:07) Electrocardiogram (04/30/25 01:07) Hs Troponin I W Calculations (04/30/25 01:07) Furosemide Inj (Lasix Inj) (04/30/25 01:15) Medications Received in ER Medications (Trade) Dose Ordered Sig/Deena Route PRN Reason Start Time Stop Time Status Last Admin Dose Admin (Lasix inj) 40 mg ONCE ONCE IV 04/30/25 01:15 04/30/25 01:16 DC 04/30/25 01:17 40 MG Vital Signs 04/30/25 04/30/25 01:08 01:24 Temp 98.6 Pulse 80 Resp 18 16 B/P (MAP) 134/101 Pulse Ox 99 O2 Flow Rate 2.0 Laboratory Tests Test 04/30/25 01:27 White Blood Count 8.3 Red Blood Count 4.67 L Hemoglobin 13.1 L Hematocrit 40.1 L Mean Corpuscular Volume 85.8 Mean Corpuscular Hemoglobin 28.1 Mean Corpuscular Hemoglobin Concent 32.7 L Red Cell Distribution Width 17.7 H Platelet Count 137 L Mean Platelet Volume 8.5 Neutrophils (%) (Auto) 80.7 H Lymphocytes (%) (Auto) 10.4 L Monocytes (%) (Auto) 6.8 Eosinophils (%) (Auto) 1.1 Basophils (%) (Auto) 1.0 Neutrophils # (Auto) 6.7 Lymphocytes # (Auto) 0.9 L Monocytes # (Auto) 0.6 Eosinophils # (Auto) 0.1 Basophils # (Auto) 0.1 CBC Comment Sodium Level 140 Potassium Level 4.9 Chloride Level 106 Carbon Dioxide Level 22.4 L Anion Gap 12 Blood Urea Nitrogen 35 H Creatinine 1.99 H Estimated GFR/1.73 m2 34 BUN/Creatinine Ratio 17.6 Glucose Level 128 H Calcium Level 8.6 Troponin I High Sensitivity 36 Pro-B-Type Natriuretic Peptide 97191 H Albumin 3.3 L Chemistry Comments EKG/XRAY/CT/US/VASC/MRI EKG : Additional Comment I personally interpreted the EKG and this shows: Sinus rhythm, right bundle- branch block, rate 80, QTC 524 Chest X-Ray : Additional Comments I personally interpreted the x-ray, and it shows: Pulmonary edema, enlarged heart, no pneumothorax Consults/PCP Consults/PCP : Additional Comment Consult: I spoke to the internal medicine service, for admission in the hospital Heart Score: Heart Score Response (Comments) Value History Slightly Suspicious 0 EKG Repolarization Disturb 1 Age 45-64 1 Risk Factors >3 or Hx ASHD 2 Troponin Normal limit 0 Total 4 Medical Decision Making Additional information obtaine: other Findings Reviewed report from EMS Heart Score: 4 Differential Dx:Considerations: Include: asthma, bronchitis, cardiogenic shock, CHF, COPD, dysrhythmia, myocardial infarction, pulmonary embolism, upper resp. infection Additional Infomation The patient presents with shortness of breath, worse with exertion as well as leg swelling. He has not have chest pain. His history and exam seem most consistent with congestive heart failure, likely worsened by methamphetamine use and not taking his Lasix regularly. EKG with no new obvious ischemic changes. Chest x-ray consistent with CHF. Labs show an increased BNP and acute kidney injury. All of this is consistent with a CHF exacerbation. He will be given Lasix and admitted to the medicine service. Departure Impression: Primary Impression: CHF exacerbation Additional Impression: Hypoxic respiratory failure Referrals: NO PRIMARY CARE PROVIDER (PCP) Signature Scribe Signature: na Attestation: NELSON Umanzor MD Apr 30, 2025 01:13
--- NOTE | 2025-04-30 01:16 | ELECTROCARDIOGRAPH REPORT ---
[facility] Test Date: 2025-04-30 Test Time: 01:14:16 Pat Name: KOFI LAWRENCE Department: [facility]- Patient ID: [facility]-[id number] Room: [place] [address] Gender: M Roll Up Operator: : 1965 Requested By: NELSON ROBLES Order Number: [id number] Reading MD: Dr. ANN Gauthier Measurements Intervals [place] Rate: 80 P: 23 GA: 185 QRS: -83 QRSD: 153 T: 79 QT: 454 QTc: 524 Interpretive Statements Sinus rhythm Right bundle branch block Anterior infarct, age indeterminate Baseline wander in lead(s) V2 Electronically Signed On 04-30-2025 18:12:[address] ANN Gauthier Please click the below link to view image of tracing.
[2025-04-30] MEDS: furosemide 10 MG/1 ML 10ml inj IV ONE (01:17)
--- NOTE | 2025-04-30 01:34 | RADIOLOGY REPORT ---
CHEST RADIOGRAPH INDICATION: CP TECHNIQUE: 1 view COMPARISON: DI CHEST,SINGLE VIEW on DOS: 02/22/25, DI CHEST,SINGLE VIEW on DOS: 01/31/25, CHEST,SINGLE VIEW on DOS: 03/15/21 FINDINGS: Lines and Tubes: None. Lungs/Pleura: Similar perihilar interstitial prominence. No focal consolidation, large pleural effusion or pneumothorax. Cardiomediastinum: Unchanged, enlarged heart size. Other: No acute osseous abnormality. IMPRESSION: 1. Heart failure pattern unchanged from 02/22/2025.
[2025-04-30 01:35] LABS: MEAN PLATELET VOLUME 8.5 FL (7.4-10.4); RED CELL DISTRIBUTION WIDTH 17.7 % (11.5-14.5)
[2025-04-30 01:58] LABS: CREATININE 1.99 MG/DL (0.60-1.10); PRO BRAIN NATRIURETIC PEPTIDE 13752 PG/ML (0-125); TOTAL CARBON DIOXIDE 22.4 MMOL/L (24-32); eCRCL 47 ML/MIN; eGFR 34 ML/MIN
[2025-04-30] MEDS ORDERED: potassium Cl 20 mEq SR tablet PO PRN ×2 (02:40)
[2025-04-30] MEDS ORDERED: mag hydrox/Alum hydrox/simeth 30ml oral suspension PO PRN (02:40)
[2025-04-30] MEDS ORDERED: magnesium sulf-water 4G/100mL 100 ML IV PRN (02:40)
[2025-04-30] MEDS ORDERED: ondansetron/PF 4mg/2ml inj IV PRN (02:40)
[2025-04-30] MEDS ORDERED: potassium Cl 40MEQ/1/2NS 520ml 520 ML IV PRN (02:40)
[2025-04-30] MEDS ORDERED: HYDROcodone/acetaminophen 5mg/325mg tablet PO PRN (02:40)
[2025-04-30] MEDS ORDERED: magnesium hydroxide 30ml (MOM) UD suspension PO PRN (02:40)
[2025-04-30] MEDS ORDERED: magnesium sulf-water 2g/50mL 50 ML IV PRN (02:40)
[2025-04-30] MEDS ORDERED: magnesium Cl slow-release 64mg tablet PO PRN (02:40)
--- NOTE | 2025-04-30 02:46 | HISTORY AND PHYSICAL-Residence ---
History & Physical Providers to CC Resident Creating Document: SAMMIASAD, RES ~ History of Present Illness Primary Medical Doctor: [facility] Reason for Admit\Complaint: CHF exacerbation History of Present Illness The patient is a 59-year-old male with past medical history of CAD s/p stenting , CVA, DM, HTN, substance use disorder, presented to the ED with complaints of worsening shortness of breath since the last 2 days. Patient was apparently asymptomatic 2 days back when he developed shortness of breath which is present even during rest. He reports having Orthopnea and PND . Patient also reports having cough that started two days ago associated with very little sputum production. However he denies any complains of chest pain, palpitations or syncope. He also reports having bilateral leg swelling. [place] and continues to smoke methamphetamines the last time being one week ago. Not compliant with his medications. Patient reports that he keeps forgetting to take his medications regularly, takes them only 50% of the time. Denies fever, sore throat, congestion, chest pain, palpitations, syncope, nausea, vomiting, diarrhea, constipation, abdominal pain, burning micturition, loss of weight. Allergies: Coded Allergies: No Known Allergies (Unverified , 04/30/25) Home Medications Home Medications Active Metoprolol Succinate 25 Mg Tab.sr.24h 0.5 Tab PO DAILY 30 Days Losartan Potassium 50 Mg Tablet 25 Mg PO HS 30 Days Atorvastatin Calcium 20 Mg Tablet 40 Mg PO DAILY 30 Days Clopidogrel (Clopidogrel Bisulfate) 75 Mg Tablet 75 Mg PO DAILY 21 Days Do not stop medication unless instructed by prescriber. Lasix (Furosemide) 20 Mg Tablet 20 Mg PO DAILY 30 Days Jardiance (Empagliflozin) 10 Mg Tablet 10 Mg PO DAILY 30 Days Ecotrin* (Aspirin) 81 Mg Tablet.dr 1 Tab PO DAILY 30 Days Aldactone (Spironolactone) 25 Mg Tablet 12.5 Mg PO DAILY@0830 30 Days Reported No Home Medications (Home Med List) Each Past Medical History Past Medical History CAD s/p stenting History of CVA DM HTN Past Surgical History Surgical History Comment Appendectomy Tonsillectomy Family History Family History: Patient reports no known family medical history. Past Social History Social History Comment Patient does not smoke now, used to smoke earlier Currently smokes meth the last one being one week ago Occasionally does marijuana Does not drink alcohol Lives at [place] campground Smoking: Quit greater than 1 year Alcohol Use: Occasionally Drug Use: Marijuana, Methamphetamine Lives with: Alone Lives In: Homeless Occupation: retired ROS ROS Constitutional: No fever, dizziness, weakness. no change in appetite/weight HEENT: No blurring of the vision, No sore throat, epistaxis, tinnitus Cardiovascular: No chest pain/discomfort, palpitations, syncope. Reports pedal edema Respiratory: Reports sob, no cough, hemoptysis Gastrointestinal: No abdominal pain, nausea, vomiting. No diarrhea, constipation, melena. Genitourinary: No frquency, urgency, incontinence, nocturia. No dysuria, hematuria Musculoskeletal: No arthralgia, myalgia Endocrine: No fatigue, polydipsia, polyuria. No heat or cold intolerance Neurologic: No headache, vertigo. No weakness, numbness or tingling of extremities Psychiatric: No hallucinations/delusions, no anhedonia, no suicidal ideation Hematologic: No bleeding or bruises Constitutional: Denies: fever Respiratory: Reports: shortness of breath, SOB with exertion Cardiovascular: Denies: chest pain Gastrointestinal: Denies: abdominal pain Exam Vitals: Vital Signs Date Time Temp Pulse Resp B/P (MAP) Pulse Ox O2 Delivery O2 Flow Rate FiO2 04/30/25 01:24 16 04/30/25 01:08 98.6 80 99 2.0 General: Adult male, alert and oriented x4, not in acute distress Head: Normocephalic with an atraumatic Eyes: Pupils- 3mm, reacting to light, conjunctiva- anicteric Nose and throat: No polyps, septum- normal, no mucosal ulcers Neck: Supple, no lymphadenopathy, no carotid bruit Respiratory: No use of accessory muscles of respiration, bibasilar crackles heard, no wheeze Cardiac: S1-S2 heard, rhythm regular, no gallop/murmur Abdomen: non distended, no tenderness, no organomegaly, bowel sounds - heard Extremities: no clubbing,3+ bilateral pedal edema, no deformities, peripheral pulses - 2+, scratch asencio on bilateral legs Skin: warm and dry, no rash, no purpura Neuro: No focal deficit, gross cranial nerve exam - normal Diagnostic Data Last Recorded Lab Results: 04/30/25 0127 04/30/25 0127 Advance Care Planning Advanced Care plannin - 30 Minutes (FULL CODE) Additional Plan Acute hypoxemic respiratory failure secondary to Exacerbation of CHF with reduced ejection fraction Likely methamphetamine induced Patient is currently on 2 L of oxygen Patient not compliant with his heart failure medications X-ray chest Similar perihilar interstitial prominence. No focal consolidation, large pleural effusion or pneumothorax. enlarged heart size. Echocardiogram done on 02/24/2025 shows LVEF of 25-30% ProBNP is elevated [id number] Patient received one dose of furosemide 40 mg in the ED. Ordered IV furosemide 40 mg twice daily. Daily weights. Water restriction 1.5 L per day. Strict intake and output. MINNA on CKD likely secondary to renal tubular stasis Creatinine 1.99, BUN 35, EGFR 34. Baseline creatinine 1.14 Carefully monitor kidney function. Continue Lasix 40 mg b.i.d. CAD s/p stenting Start aspirin 81 mg daily. History of CVA On aspirin 81 mg daily. Substance use disorder Patient smokes methamphetamines and nicotine. Substance use navigator and social service agency director consulted. Code Status: Full code DVT Prophylaxis: Heparin Analgesia/Sedation: Acetaminophen Lines/Tubes: PIV Nutrition: Sodium restricted diet PT: Ordered Prognosis: Guarded Disposition: We will admit the patient into medical ivey. Continue Lasix. Patient not compliant with his medications. Asad Williamson PGY-1 Patient assessed, I agree with the assessment and plan above by the resident as above with no changes. Santa Atkinson MD Critical Care Date of Service: Apr 30, 2025 Billing Provider: SANTA ATKINSON MD, PREETHI, RES Apr 30, 2025 02:46 SANTA ATKINSON MD Apr 30, 2025 19:07
[2025-04-30] MEDS ORDERED: METO-395 PO (02:55)
[2025-04-30 08:00] VITALS: RESP 18; O2SAT 95
[2025-04-30] MEDS: K and/or MAG REPLACEMENT MC SCH (08:00)
[2025-04-30] MEDS: docusate sod 100mg capsule PO SCH (08:00)
[2025-04-30] MEDS: heparin, porcine 5000 units/ml vial SQ SCH (09:24)
[2025-04-30] MEDS: EMPAGLIFLOZIN 10 MG TABLET PO SCH (09:24)
[2025-04-30] MEDS: aspirin 81mg, enteric-coated 1 TAB TABLET.DR PO SCH (09:24)
[2025-04-30 11:00] VITALS: BP 145/101; PULSE 77; RESP 20; TEMP 97.2; O2SAT 94
[2025-04-30 15:00] VITALS: BP 102/69; PULSE 78; RESP 18; TEMP 98.7; O2SAT 95
[2025-04-30 18:00] VITALS: BP 116/74; PULSE 82; RESP 18; TEMP 97.5; O2SAT 97
[2025-04-30 20:00] VITALS: RESP 18; O2SAT 97
[2025-04-30 22:00] VITALS: BP 104/75; PULSE 80; RESP 17; TEMP 98.4; O2SAT 97
[2025-05-01] VITALS (16 sets, daily range): BP systolic 91–129; BP diastolic 56–99; PULSE 71–83; RESP 14–22; TEMP 97.4–97.9; O2SAT 94–98
[2025-05-01 07:31] LABS: MEAN PLATELET VOLUME 8.6 FL (7.4-10.4); RED CELL DISTRIBUTION WIDTH 17.3 % (11.5-14.5)
[2025-05-01 07:51] LABS: CHOL/HDL RATIO 3.1 (0.00-4.99); CREATININE 2.00 MG/DL (0.60-1.10); LDL CHOLESTEROL 66 MG/DL (50-100); PRO BRAIN NATRIURETIC PEPTIDE 7554 PG/ML (0-125); TOTAL CARBON DIOXIDE 24.6 MMOL/L (24-32); eCRCL 47 ML/MIN; eGFR 34 ML/MIN
--- NOTE | 2025-05-01 11:53 | CONSULTATION REPORT ---
Consult Providers to CC ~ History of Present Illness Primary Medical Doctor: Kyra Hill MD Reason for Admit\Complaint: minna History of Present Illness The patient is a 59-year-old male with past medical history of CAD s/p stenting , CVA, DM, HTN, substance use disorder, presented to the ED with complaints of worsening shortness of breath since the last 2 days. Patient was apparently asymptomatic 2 days back when he developed shortness of breath which is present even during rest. He reports having Orthopnea and PND . Patient also reports having cough that started two days ago associated with very little sputum production. However he denies any complains of chest pain, palpitations or syncope. He also reports having bilateral leg swelling. [place] and continues to smoke methamphetamines the last time being one week ago. Not compliant with his medications. Patient reports that he keeps forgetting to take his medications regularly, takes them only 50% of the time. Denies fever, sore throat, congestion, chest pain, palpitations, syncope, nausea, vomiting, diarrhea, constipation, abdominal pain, burning micturition, loss of weight. Allergies: Coded Allergies: No Known Allergies (Unverified , 04/30/25) Home Medications Home Medications Active Losartan Potassium 50 Mg Tablet 25 Mg PO HS 30 Days Lasix (Furosemide) 20 Mg Tablet 20 Mg PO DAILY 30 Days Jardiance (Empagliflozin) 10 Mg Tablet 10 Mg PO DAILY 30 Days Ecotrin* (Aspirin) 81 Mg Tablet.dr 1 Tab PO DAILY 30 Days Aldactone (Spironolactone) 25 Mg Tablet 12.5 Mg PO DAILY@0830 30 Days Reported Metoprolol Succinate 25 Mg Tab.sr.24h 1 Tab PO DAILY 30 Days Past Medical History Past Medical History CAD s/p stenting History of CVA DM HTN Past Surgical History Surgical History Comment Appendectomy Tonsillectomy Family History Family History: Patient reports no known family medical history. Past Social History Social History Comment Patient does not smoke now, used to smoke earlier Currently smokes meth the last one being one week ago Occasionally does marijuana Does not drink alcohol Lives at campground Smoking: Quit greater than 1 year Alcohol Use: Occasionally Drug Use: Marijuana, Methamphetamine Lives with: Alone Lives In: Homeless Occupation: retired ROS ROS the patient has been a chronic user of methamphetamine andis trying himself to reduce the frequency. But the man has not been successful. has some shortness of breath on exertion and some leg swelling off and on. Exam Vitals: Vital Signs Date Time Temp Pulse Resp B/P (MAP) Pulse Ox O2 Delivery O2 Flow Rate FiO2 05/01/25 10:01 83 05/01/25 02:00 97.6 16 129/93 (105) 94 Room Air 04/30/25 20:00 0.0 General: Vital Signs: As above General: Normal body habitus, no acute distress. Skin: No rashes, lumps, ulcers, blisters, purpura or petechiae HEENT: Anicteric sclera, REBEKA Neck: Supple and nontender without enlargement of the thyroid, or lymphadenopathy. Chest: Normal size and shape, no tenderness, CTA bilaterally Heart: Regular. No jugular venous distention, S1 and S2 heard , no gallop Abdomen: Soft and non tender no organomegaly,BS+ Extremities: No pedal edema Neuro: Nonfocal. Diagnostic Data Last Recorded Lab Results: 05/01/25 0649 05/01/25 0645 Problems: (1) MINNA (acute kidney injury) Assessment & Plan: he has atherosclerotic vascular disease with possible Dm nephropathy pre existent. However, he also seems to have cardiorenal syndrome happening simultaneously at this time, with his EF at 20%,. I shall start temporary dobutamine drip when he is here. fluid restriction to 1.2 liters per day. renal diet. I spent quite a time today discussing with him directly about the complications of methamphetamine abuse and he is able to see the reality. (2) CKD (chronic kidney disease) stage 3, GFR 30-59 ml/min Assessment & Plan: baseline creatinine being 1.6 to 1.8 from before. (3) Methamphetamine abuse Status: Acute Assessment & Plan: as discussed above. explained in detail abtou the complications he can face including from this habit and how it is already damaging the end organs. (4) Heart failure with reduced ejection fraction Status: Chronic Assessment & Plan: start dobutamine (5) Type 2 diabetes mellitus with hyperglycemia Status: Acute Assessment & Plan: check ua and rule out proteinuria. JR RIZZO MD May 01, 2025 11:53
[2025-05-01] MEDS: DOBUTamine-DoBUTrex 500mg/D5W 250 ML IV SCH (15:18)
--- NOTE | 2025-05-01 17:17 | PROGRESS NOTE ---
Daily Progress Note Providers to CC ~ Antibiotic Timeout Antibiotic Ordered?: No Subjective cc- still sob, increased somnolence ros- neg Objective Vital Signs Date Time Temp Pulse Resp B/P (MAP) Pulse Ox O2 Delivery O2 Flow Rate FiO2 05/01/25 10:01 83 05/01/25 02:00 97.6 16 129/93 (105) 94 Room Air 04/30/25 20:00 0.0 Result Diagram: 05/01/25 0649 05/01/25 0645 Head: Normocephalic with an atraumatic Eyes: Pupils- 3mm, reacting to light, conjunctiva- anicteric Respiratory: No use of accessory muscles of respiration, bibasilar crackles heard, no wheeze Cardiac: S1-S2 heard, rhythm regular, no gallop/murmur Abdomen: non distended, no tenderness, no organomegaly, bowel sounds - heard Extremities: no clubbing,3+ bilateral pedal edema, no deformities, peripheral pulses - 2+, scratch asencio on bilateral legs Problem\Assessment\Plan Acute hypoxemic respiratory failure secondary to Exacerbation of CHF with reduced ejection fraction Likely methamphetamine induced Patient is currently on 2 L of oxygen Patient not compliant with his heart failure medications X-ray chest Similar perihilar interstitial prominence. No focal consolidation, large pleural effusion or pneumothorax. enlarged heart size. Echocardiogram done on 02/24/2025 shows LVEF of 25-30% ProBNP is elevated [id number] Patient received one dose of furosemide 40 mg in the ED. Ordered IV furosemide 40 mg twice daily. Daily weights. Water restriction 1.5 L per day. Strict intake and output. MINNA on CKD likely secondary to renal tubular stasis Creatinine 1.99, BUN 35, EGFR 34. Baseline creatinine 1.14 Carefully monitor kidney function. Continue Lasix 40 mg b.i.d. CAD s/p stenting Start aspirin 81 mg daily. History of CVA On aspirin 81 mg daily. Substance use disorder Patient smokes methamphetamines and nicotine. Substance use navigator and rn social work consulted. Code Status: Full code DVT Prophylaxis: Heparin Analgesia/Sedation: Acetaminophen Lines/Tubes: PIV Nutrition: Sodium restricted diet PT: Ordered Date of Service: May 01, 2025 Billing Provider: DWIGHT GUTIERREZ MD Common Visit Codes: [id number] INP/OBS CARE(HIGH) DWIGHT GUTIERREZ MD May 01, 2025 17:17
[2025-05-01 17:44] LABS: LEUKOCYTE ESTERASE ,URINE NEGATIVE (Neg); NITRITES, URINE NEGATIVE (Neg); OCCULT BLOOD,URINE NEGATIVE (Neg)
[2025-05-01 17:45] LABS: UA COLLECTION TYPE NON-SPECIFIED
[2025-05-01 17:53] LABS: MUCUS STRANDS NONE SEEN /LPF (Neg); SQUAMOUS EPITHELIAL CELL,UR FEW /LPF (FEW)
[2025-05-02] VITALS (13 sets, daily range): BP systolic 96–123; BP diastolic 58–83; PULSE 75–86; RESP 12–24; TEMP 97.2–98.5; O2SAT 95–99
[2025-05-02 07:44] LABS: MEAN PLATELET VOLUME 8.4 FL (7.4-10.4); RED CELL DISTRIBUTION WIDTH 17.1 % (11.5-14.5)
[2025-05-02 08:00] LABS: CREATININE 1.84 MG/DL (0.60-1.10); PRO BRAIN NATRIURETIC PEPTIDE 3192 PG/ML (0-125); TOTAL CARBON DIOXIDE 25.2 MMOL/L (24-32); eCRCL 51 ML/MIN; eGFR 38 ML/MIN
--- NOTE | 2025-05-02 09:23 | PROGRESS NOTE ---
Progress Note Dictate Providers to CC ~ Central Line/PICC still needed: No Aguilar Indications Met/Not Met: F/C Indications Not Met Antibiotic Ordered?: N/A Subjective Subjective Started on Dobutamine yesterday. urine output si good. Creatinine is slightly better at 1.8. But his baseline is about 1.6. With another day of dobutamine, he may get even better. Defer discharge decisions to primary team. Objective Vitals Vital Signs Date Time Temp Pulse Resp B/P (MAP) Pulse Ox O2 Delivery O2 Flow Rate FiO2 05/03/25 08:00 Room Air 05/03/25 07:09 77 05/03/25 04:00 18 107/72 (84) 05/03/25 02:00 98.0 98 04/30/25 20:00 0.0 Lab Results: 05/03/2505 05/03/25604 Objective Vital Signs: As above General: Normal body habitus, no acute distress. Skin: No rashes, lumps, ulcers, blisters, purpura or petechiae HEENT: Anicteric sclera, REBEKA Neck: Supple and nontender without enlargement of the thyroid, or lymphadenopathy. Chest: Normal size and shape, no tenderness, CTA bilaterally Heart: Regular. No jugular venous distention, S1 and S2 heard , no gallop Abdomen: Soft and non tender no organomegaly,BS+ Extremities: No pedal edema Neuro: Nonfocal. 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 However, he also seems to have cardiorenal syndrome happening simultaneously at this time, with his EF at 20%,. I shall start temporary dobutamine drip when he is here. fluid restriction to 1.2 liters per day. renal diet. I spent quite a time yesterday discussing with him directly about the complications of methamphetamine abuse and he is able to see the reality. (2) CKD (chronic kidney disease) stage 3, GFR 30-59 ml/min Assessment & Plan: baseline creatinine being 1.6 to 1.8 from before. (3) Methamphetamine abuse Assessment & Plan: as discussed above. explained in detail abtou the complications he can face including from this habit and how it is already damaging the end organs. (4) Heart failure with reduced ejection fraction Assessment & Plan: start dobutamine (5) Type 2 diabetes mellitus with hyperglycemia Assessment & Plan: check ua and rule out proteinuria. JR RIZZO MD May 02, 2025 09:23
--- NOTE | 2025-05-02 19:29 | PROGRESS NOTE ---
Daily Progress Note Providers to CC ~ Antibiotic Timeout Antibiotic Ordered?: No Subjective The patient states that his breathing is improved significantly with dobutamine drip however still not at his baseline. At rest the patient did not exhibit any dyspnea Objective Vital Signs Date Time Temp Pulse Resp B/P (MAP) Pulse Ox O2 Delivery O2 Flow Rate FiO2 05/02/25 11:00 97.2 86 19 116/80 (92) 95 Room Air 04/30/25 20:00 0.0 Result Diagram: 05/02/2563605/02/25636 Gen. 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 No focal consolidation, large pleural effusion or pneumothorax. enlarged heart size. Echocardiogram done on 02/24/2025 shows LVEF of 25-30% ProBNP [place] elevated 20497 Patient received one dose of furosemide 40 mg in the ED. Ordered IV furosemide 40 mg twice daily. Daily weights. Water restriction 1.5 L per day. Strict intake and output. 05/02 improving with the dobutamine drip MINNA on CKD possibly secondary to renal tubular stasis Creatinine 1.99, BUN 35, EGFR 34. Baseline creatinine 1.14 Carefully monitor kidney function. Continue Lasix 40 mg b.i.d. 05/[address] Rogers is following and is slightly improving CAD s/p stenting Start aspirin 81 mg daily. History of CVA On aspirin 81 mg daily. Substance use disorder Patient smokes methamphetamines and nicotine. Substance use navigator and delinquency prevention social worker consulted. Code Status: Full code DVT Prophylaxis: Heparin Analgesia/Sedation: Acetaminophen Lines/Tubes: PIV Nutrition: Sodium restricted diet PT: Ordered Date of Service: May 02, 2025 Billing Provider: JOHN LAZAR DO Common Visit Codes: [id number] INP/OBS CARE(HIGH) JOHN LAZAR DO May 02, 2025 19:29
[2025-05-03] VITALS: BP 123/83; PULSE 76; RESP 19
[2025-05-03 01:00] VITALS: BP 108/72; PULSE 79; RESP 17
[2025-05-03 02:00] VITALS: TEMP 98; O2SAT 98
[2025-05-03 04:00] VITALS: BP 107/72; PULSE 78; RESP 18
[2025-05-03 06:00] VITALS: BP 98/71; PULSE 81; RESP 16; TEMP 97.7; O2SAT 93
[2025-05-03 06:48] LABS: MEAN PLATELET VOLUME 8.3 FL (7.4-10.4); RED CELL DISTRIBUTION WIDTH 16.9 % (11.5-14.5)
[2025-05-03 07:01] LABS: CREATININE 1.68 MG/DL (0.60-1.10); PRO BRAIN NATRIURETIC PEPTIDE 1794 PG/ML (0-125); TOTAL CARBON DIOXIDE 23.8 MMOL/L (24-32); eCRCL 56 ML/MIN; eGFR 42 ML/MIN
[2025-05-03 11:00] VITALS: BP 97/63; PULSE 77; RESP 17; TEMP 97.6; O2SAT 97
--- NOTE | 2025-05-03 11:32 | PROGRESS NOTE ---
Progress Note Dictate Providers to CC ~ Central Line/PICC still needed: No Aguilar Indications Met/Not Met: F/C Indications Not Met Antibiotic Ordered?: N/A Subjective Subjective wean dobutamine by this evening off. hopefully he can be discharged tonight. His creatinine is down to 1.6. Poor eF that requires cardiology follow up. I have made it clear that he touches meth again, he is history. Objective Vitals Vital Signs Date Time Temp Pulse Resp B/P (MAP) Pulse Ox O2 Delivery O2 Flow Rate FiO2 05/03/25 08:00 Room Air 05/03/25 07:09 77 05/03/25 04:00 18 107/72 (84) 05/03/25 02:00 98.0 98 04/30/25 20:00 0.0 Lab Results: 05/03/2505 05/03/25 06 Objective Vital Signs: As above General: Normal body habitus, no acute distress. Skin: No rashes, lumps, ulcers, blisters, purpura or petechiae HEENT: Anicteric sclera, REBEKA Neck: Supple and nontender without enlargement of the thyroid, or lymphadenopathy. Chest: Normal size and shape, no tenderness, CTA bilaterally Heart: Regular. No jugular venous distention, S1 and S2 heard , no gallop Abdomen: Soft and non tender no organomegaly,BS+ Extremities: No pedal edema Neuro: Nonfocal. 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 However, he also seems to have cardiorenal syndrome happening simultaneously at this time, with his EF at 20%,. I shall start temporary dobutamine drip when he is here. wean it off slowly todya. discussed with . fluid restriction to 1.2 liters per day. renal diet. I spent quite a time yesterday discussing with him directly about the complications of methamphetamine abuse and he is able to see the reality. (2) CKD (chronic kidney disease) stage 3, GFR 30-59 ml/min Assessment & Plan: baseline creatinine being 1.6 to 1.8 from before. (3) Methamphetamine abuse Assessment & Plan: as discussed above. explained in detail abtou the complications he can face including from this habit and how it is already damaging the end organs. (4) Heart failure with reduced ejection fraction Assessment & Plan: start dobutamine (5) Type 2 diabetes mellitus with hyperglycemia Assessment & Plan: check ua and rule out proteinuria. JR RIZZO MD May 03, 2025 11:32
[2025-05-03] MEDS ORDERED: POTA-207 PO (13:02)
[2025-05-03] MEDS ORDERED: FURO40TA4 PO (13:02)
--- NOTE | 2025-05-03 19:39 | DISCHARGE SUMMARY ---
Discharge Summary Providers to CC ~ Discharge Summary Admission Diagnosis: Shortness of breath Hospital Course DATE OF ADMISSION: 04/30/2025 DATE OF DISCHARGE: 05/03/2025 Discharge Diagnosis\\Comment: Acute kidney injury on chronic kidney disease possibly secondary to renal tubular stasis, HFrEF acute exacerbation, acute hypoxic respiratory failure, methamphetamine induced cardiomyopathy, history of CAD with stenting and history of CVA Operations\\Procedures: None Consultants: Dr. Rogers nephrologists Complications: None Condition on DC: Stable New Medications: Furosemide (Furosemide) 40 Mg Tablet 1 TABLET PO BID, #60 TABLET Potassium Chloride* (K-Dur*) 20 Meq Tab.prt.sr 1 TAB PO DAILY for 30 Days, #30 TAB Continued Medications: Aspirin (Ecotrin*) 81 Mg Tablet.dr 1 TAB PO DAILY for 30 Days, #30 TAB.SR Empagliflozin (Jardiance) 10 Mg Tablet 10 MG PO DAILY for 30 Days, #30 TAB Losartan Potassium (Losartan Potassium) 50 Mg Tablet 25 MG PO HS for 30 Days, #30 TAB Metoprolol Succinate (Metoprolol Succinate) 25 Mg Tab.sr.24h 1 TAB PO DAILY for 30 Days, #30 TAB 0 Refills Spironolactone (Aldactone) 25 Mg Tablet 12.5 MG PO DAILY@0830 for 30 Days, #30 TAB Discontinued Medications: Furosemide (Lasix) 20 Mg Tablet 20 MG PO DAILY for 30 Days, #30 TAB Discharge Summary: The patient is admitted by resident physician ASAD Thomas , under the supervision of FELICITA Wallace MD with the following HPI:"The patient is a 59-year-old male with past medical history of CAD s/p stenting , CVA, DM, HTN, substance use disorder, presented to the ED with complaints of worsening shortness of breath since the last 2 days. Patient was apparently asymptomatic 2 days back when he developed shortness of breath which is present even during rest. He reports having Orthopnea and PND . Patient also reports having cough that started two days ago associated with very little sputum production. Howeve r he denies any complains of chest pain, palpitations or syncope. He also reports having bilateral leg swelling. [place] and continues to smoke methamphetamines the last time being one week ago. Not compliant with his medications. Patient reports that he keeps forgetting to take his medications regularly, takes them only 50% of the time. Denies fever, sore throat, congestion, chest pain, palpitations, syncope, nausea, vomiting, diarrhea, constipation, abdominal pain, burning micturition, loss of weight." The patient has a MINNA on chronic kidney disease with a creatinine of 1.99 on admission that has did improve in his creatinine was 1.68 day discharge the patient has known HFrEF in his LVEF was 25-30% on echocardiogram in February search engine marketing strategist evaluated the patient and started the patient on dobutamine drip the patient is also takes 20 mg of p.o. Lasix at home daily he was given IV Lasix 40 mg b.i.d. dobutamine was titrated off the patient has shortness breath had significantly improved and was nearly resolved by the morning of the and the patient is discharged with a higher dose of Lasix and he takes at home 40 mg b.i.d. The patient is to continue metoprolol succinate, losartan, spironolactone, Jardiance. The patient has a history of CVA and coronary artery disease with stenting and remains on 81 mg aspirin Gen. No acute distress alert and oriented 4 Lungs clear to ascultation bilaterally, no wheezes rales or rhonchi appreciated Heart normal sinus rhythm no murmurs rubs or clicks noted Abdomen soft nontender bowel sounds are normoactive Lower extremities no clubbing cyanosis, +1 pitting edema appreciated bilaterally The patient felt ready to be discharged and was medically cleared to be discharged on 05/03/2025 The patient was seen and evaluated on day of discharge. Time spent on discharge 35 minutes *Problems/Diagnosis: (1) Methamphetamine abuse Status: Acute (2) Type 2 diabetes mellitus with hyperglycemia Status: Acute Total Time Spent on D/C: > 30 Minutes Date of Service: May 03, 2025 Billing Provider: JOHN LAZAR DO Common Visit Codes: 78144-EKP/OBS DISCH DAY >30min JOHN LAZAR DO May 03, 2025 19:38
== END 2025-05-03 14:40 | disposition home or self-care (01) | DRG 194 ==
LOC: ER 01:00 → ED HOLD 02:24 → EDBEDREQ 06:22 → PCU 3S 07:24
PROVIDERS: ADMIT Internal Medicine Pulmonary Disease; ATTEND Internal Medicine
DX: I13.0 Hypertensive heart and chronic kidney disease with heart failure and stage 1 through stage 4 chronic kidney disease, or unspecified chronic kidney disease (principal); N17.0 Acute kidney failure with tubular necrosis; J96.01 Acute respiratory failure with hypoxia; I50.23 Acute on chronic systolic (congestive) heart failure; E11.22 Type 2 diabetes mellitus with diabetic chronic kidney disease; F15.10 Other stimulant abuse, uncomplicated; N18.30 Chronic kidney disease, stage 3 unspecified; I42.7 Cardiomyopathy due to drug and external agent; I25.10 Atherosclerotic heart disease of native coronary artery without angina pectoris; E11.65 Type 2 diabetes mellitus with hyperglycemia; Z86.73 Personal history of transient ischemic attack (TIA), and cerebral infarction without residual deficits; Z95.5 Presence of coronary angioplasty implant and graft; Z87.891 Personal history of nicotine dependence; Z91.148 Patient's other noncompliance with medication regimen for other reason; Z59.00 Homelessness unspecified; Z90.49 Acquired absence of other specified parts of digestive tract
CPT/HCPCS: 36415; 71045; 80048; 80053; 80061; 81001; 83036; 83735; 83880; 84132; 84484; 85025; 87081; 93005; 96372; 96374; 99285; G0378; J1250; J1644; J1938